=== PATIENT | male | born 1945 | race Caucasian/White ===

== ENCOUNTER 2023-04-18 05:17 | Observation (INO) ==
--- NOTE | 2023-03-20 13:33 | PAT Medication Instructions ---
Medication Instructions Date of Service March 20, 2023 Home Medications atorvastatin 40 mg tablet 40 mg PO PM buspirone 5 mg tablet 5 mg PO BID cetirizine 10 mg tablet (Zyrtec) 10 mg PO QPM cholecalciferol (vitamin D3) 125 mcg (5,000 unit) tablet (Vitamin D3) 125 mcg PO QAM cyanocobalamin (vitamin B-12) 1 tab PO QAM erythromycin 250 mg tablet 250 mg PO 3XWK gabapentin 100 mg capsule 200 mg PO TID guaifenesin 1,200 mg tablet, extended release 12 hr (Mucinex) 1,200 mg PO BID lansoprazole 30 mg capsule,delayed release (Prevacid) 30 mg PO QAM losartan 25 mg tablet 25 mg PO BID meloxicam 7.5 mg tablet 7.5 mg PO QAM metoprolol succinate 25 mg tablet,extended release 24 hr 25 mg PO QAM Continue as directed erythromycin 250 mg tablet 250 mg PO 3XWK ASK your surgeon for instructions meloxicam 7.5 mg tablet 7.5 mg PO QAM DO NOT take the morning of surgery cholecalciferol (vitamin D3) 125 mcg (5,000 unit) tablet (Vitamin D3) 125 mcg PO QAM cyanocobalamin (vitamin B-12) 1 tab PO QAM guaifenesin 1,200 mg tablet, extended release 12 hr (Mucinex) 1,200 mg PO BID losartan 25 mg tablet 25 mg PO BID Take morning of surgery With a small sip of water, OTHERWISE NOTHING TO EAT OR DRINK AFTER MIDNIGHT: buspirone 5 mg tablet 5 mg PO BID gabapentin 100 mg capsule 200 mg PO TID lansoprazole 30 mg capsule,delayed release (Prevacid) 30 mg PO QAM metoprolol succinate 25 mg tablet,extended release 24 hr 25 mg PO QAM Take evening before surgery atorvastatin 40 mg tablet 40 mg PO PM buspirone 5 mg tablet 5 mg PO BID cetirizine 10 mg tablet (Zyrtec) 10 mg PO QPM gabapentin 100 mg capsule 200 mg PO TID guaifenesin 1,200 mg tablet, extended release 12 hr (Mucinex) 1,200 mg PO BID losartan 25 mg tablet 25 mg PO BID Other Notes If you have any questions please call us at [phone] or [phone] or [phone] or [phone]
--- NOTE | 2023-03-23 15:32 | Anesthesiology Consultation ---
Date of Service March 23, 2023 Assessment & Plan (1) Encounter for pre-operative examination: - COVID screening: Per assessment on 03/23: No known COVID-19 positive contacts or current COVID-19 related symptoms. Travel screen negative. Patient vaccinated. At surgeon discretion if preop Covid testing being done. - Outpatient joint assessment: Pt currently scheduled for inpatient pathway. If surgeon requests review for outpatient joint pathway, patient is not recommended candidate for outpatient joint program from anesthesia standpoint. - Cardiology note (02/07/23): "Cleared from a cardiac standpoint to have right total knee replacement surgery. Pt reports being able to achieve 4 METS by walking a city block or climbing a flight of stairs without chest pain or SOB. It is not recommended that he stop his ASA as will increase his risk for cardiac event." - Preop CXR: Performed 03/23/23 notes "No acute cardiopulmonary abnormality is clearly identified. There is volume loss and diffuse interstitial change throughout the right lung. Question lobar atelectasis of the right lung. These findings are of indeterminate chronicity. Correlate with any prior outside imaging studies. If no prior studies are available then a chest CT should be obtained for further assessment of the thorax." Patient follows with pulmonary. Note written to pulmonary- Awaiting response + most recent pulmonary office visit note (Dr. Chaudhry/Britney). Chart Review Chart Review: Patient seen in Pre Admission Testing Teaching & Discussion Pre-Anesthesia Teaching/Discussion Notes: Instructed NPO after midnight before surgery,except medications with 15 cc of water. Medication instructions provided according to the PAT guidelines. History Surgery Operation Date: 04/18/23 07:00 Proposed Procedures p Right Total Knee Arthroplasty - Binu Wang MD Height/Weight Height: 5 ft 7 in Weight: 105 kg Allergies Allergy/AdvReac Type Severity Reaction Status Date / Time No Known Allergies Allergy Verified 03/20/23 11:50 Medications Home Medications Medication Instructions Recorded Confirmed Last Taken atorvastatin 40 mg tablet 40 mg PO PM 03/20/23 03/20/23 Unknown buspirone 5 mg tablet 5 mg PO BID 03/20/23 03/20/23 Unknown cetirizine 10 mg tablet (Zyrtec) 10 mg PO QPM 03/20/23 03/20/23 Unknown cholecalciferol (vitamin D3) 125 125 mcg PO QAM 03/20/23 03/20/23 Unknown mcg (5,000 unit) tablet (Vitamin D3) cyanocobalamin (vitamin B-12) 1 tab PO QAM 03/20/23 03/20/23 Unknown erythromycin 250 mg tablet 250 mg PO 3XWK 03/20/23 03/20/23 Unknown gabapentin 100 mg capsule 200 mg PO TID 03/20/23 03/20/23 Unknown guaifenesin 1,200 mg tablet, 1,200 mg PO BID 03/20/23 03/20/23 Unknown extended release 12 hr (Mucinex) lansoprazole 30 mg capsule,delayed 30 mg PO QAM 03/20/23 03/20/23 Unknown release (Prevacid) losartan 25 mg tablet 25 mg PO BID 03/20/23 03/20/23 Unknown meloxicam 7.5 mg tablet 7.5 mg PO QAM 03/20/23 03/20/23 Unknown metoprolol succinate 25 mg 25 mg PO QAM 03/20/23 03/20/23 Unknown tablet,extended release 24 hr Past Medical History Medical History Aortic aneurysm Mild dilation of the distal aorta per 06/2022 aorta ultrasound Aortic stenosis 06/2022 Echo: Calcified and restricted aortic valve with mild aortic stenosis (PORFIRIO 1.5 cm, MG 12 mmHg) Barretts esophagus CAD (coronary artery disease) stent x1 (2017) follows with Dr. Nina Chronic lung disease reports r/t hx lung infection reason for abx 3xwk + mucinex follows with Dr. Allison/Britney GERD (gastroesophageal reflux disease) History of COVID-19 2020- [place] in [place] > BL PE History of DVT (deep vein thrombosis) BLLE (2020), in setting of Covid infection History of pulmonary embolism BL PE (2020) + Covid HLD (hyperlipidemia) HTN (hypertension) Osteoarthritis Osteoporosis Sleep apnea no device Spinal stenosis Exercise / Class Metabolic Activity II 4-5 Yardwork/Stairs/Walk up hill (one FS (no CP, no SOB)) Past Family History Family History Other No family history of adverse response to anesthesia Past Surgical History Surgical History History of cardiac catheterization 2018 > 1 stent History of cataract surgery History of cholecystectomy History of colonoscopy History of esophagogastroduodenoscopy (EGD) History of lumbar surgery + hardware History of repair of rotator cuff Right History of ventral hernia repair Past Anesthesia History No Hx of Anesthesia Complications and No Family Hx of Anesthesia Complications History of PONV No Hx of PONV and Hx of Motion Sickness (+ vertigo) Social History Smoking Status: Former smoker Do You Dip or Chew Tobacco: No Smoking End Date: Quit 1990 Hx Alcohol Use: Yes alcohol intake frequency: holidays/special occasions only Hx Substance Use: No substance use type: does not use Review of Systems Patient denies chest pain, shortness of breath, dyspnea on exertion, fever, chills, cough, wheezing, palpitations. Physical Exam Vital Signs VITALS BP 112/71 P 89 TEMP 98.2 SP02 95%RA RESP 16 PHYSICAL Full cervical extension range of motion. Full TMJ range of motion. TMD 3 finger breaths Mallampati Score 3 Dentition: full dentures upper/lower Lungs: clear throughout to auscultation Cardiac: regular rate and rhythm, II-III/ systolic murmur Spine: normal Carotid arteries: negative bruit Extremities: no LE edema Lab Results Anesthesia Preop Results Results Anesthesia Widget: WBC 7.13 K/ul (4.8-10.8) 03/23/23 Hgb 13.7 g/dl (14.0-18.0) L 03/23/23 Hct 40.0 % (42.0-52.0) L 03/23/23 Plt 276 K/uL (130-400) 03/23/23 Na 138 mmol/L (136-145) 03/23/23 K 4.0 mmol/L (3.5-5.1) 03/23/23 Cl 105 mmol/L (98-107) 03/23/23 CO2 24 mmol/L (21-32) 03/23/23 BUN 21 mg/dl (6-23) 03/23/23 Creat 1.24 mg/dl (0.6-1.4) 03/23/23 Glucose Level 130 mg/dl (70-99(Fasting)) H 03/23/23 PT 10.9 Seconds (9.0-12.0) 03/23/23 PTT 28.1 Seconds (21.0-31.0) 03/23/23 INR 1.0 (0.9-1.1) 03/23/23 Urine Color Yellow 03/23/23 Urine Appearance Clear (Clear) 03/23/23 Urine pH 5.5 (4.5-7.5) 03/23/23 Urine Specific [place] 1.014 (1.000-1.030) 03/23/23 Urine Protein Negative (Negative) 03/23/23 Urine Glucose (UA) Negative (Negative) 03/23/23 Urine Ketones Negative (Negative) 03/23/23 Urine Blood Negative (Negative) 03/23/23 Urine Nitrite Negative (Negative) 03/23/23 Urine Bilirubin Negative (Negative) 03/23/23 Urine Urobilinogen Negative (Negative) 03/23/23 Urine Leukocyte Esterase Negative (Negative) 03/23/23 Blood Type A Negative 03/23/23 Antibody Screen NEGATIVE 03/23/23 Testing Electrocardiogram Date: 05/31/22 SR at 74bpm. "Within normal limits" Chest X-Ray Date: 03/23/23 FINDINGS: PA and lateral chest radiographs are obtained. No prior studies are available for comparison at the time of dictation. The cardiomediastinal silhouette is unremarkable noting atherosclerotic calcification of the thoracic aorta. There is volume loss in the right lung with diffuse interstitial thickening. Question lobar atelectasis of the right lung. Milder interstitial thickening seen in the left lung and there is bibasilar scarring/atelectasis. No airspace consolidation typical for pneumonia or pleural effusion is identified. There is no pneumothorax. The skeletal structures are osteopenic. The bony thorax appears intact. Degenerative change and hypertrophy arthrosis is noted in the thoracic spine. Cholecystectomy clips are noted in the right upper quadrant. IMPRESSION: No acute cardiopulmonary abnormality is clearly identified. There is volume loss and diffuse interstitial change throughout the right lung. Question lobar atelectasis of the right lung. These findings are of indeterminate chronicity. Correlate with any prior outside imaging studies. If no prior studies are available then a chest CT should be obtained for further assessment of the thorax. Echocardiogram Date: 07/18/22 LVEF 55-60%. Mild LVH. Calcified and restricted aortic valve with mild aortic stenosis (PORFIRIO 1.5 cm, MG 12 mmHg). Mild TR. Mild LAE. Grade 1 diastolic dysfunction. Stress Test Date: 08/24/22 Type: nuclear Negative ECG response. Probability of CAD/ischemia relatively low. No significant ischemia. No significant infarction. SPECT perfusion images are considered to be within normal limits. LVEF 74%. Other Testing Abdominal aorta ultrasound Date: 07/18/22 Mild dilation of the distal aorta. Largest diameter of 2.7cm x 2.7cm. Cardiology provider response (07/18/22), "Abdominal aorta only slightly widened. No intervention needed at this time. Will continue to check yearly" COVID-19 Risk Screen Screening Information COVID-19 Screen Date: 03/23/23 Exposure 21 Days Family/Household +COVID Last 21 Days: No Exposure 10 Days Any COVID Exposure Last 10 Days: No Symptoms Last 10 Days Experienced COVID Sx Last 10 Days: No + COVID 0-90 Days COVID + in Last 0-90 Days: No
--- NOTE | 2023-04-17 17:09 | History & Physical Report ---
Date of Service April 17, 2023 Assessment & Plan (1) Primary osteoarthritis of right knee: Plan: Treatment options discussed with patient. He has failed conservative measures. He would like to proceed with surgery. Risks, benefits and alternatives to surgery including but not limited to infection, DVT, pain, stiffness, need for revision surgery, damage to blood vessels, damage to nerves, PE, , were discussed with the patient and they wish to proceed. Plan for right total knee arthroplasty on 228 at [facility] with Dr. Wang. Plan on Xarelto 10 mg daily for 1 month postop for DVT prophylaxis. We will plan on outpatient physical therapy. All questions answered. Patient will follow up postop. History of Present Illness Chief Complaint: Right knee pain Primary Care Provider: Nelson Flores DO 77-year-old male with past medical history significant for hypertension, CAD, history of lung infections managed with prophylactic antibiotics, history of bilateral PEs status post COVID, GERD who presents with ongoing left knee pain. Patient has end-stage osteoarthritis. Pain is interfering with his daily activities. He has failed conservative measures and would like to proceed with surgery. Patient denies headaches, sweats, fevers, chills, double vision, blurred vision, cough, sore throat, dysphagia, chest pain, sob, wheezing, n/v/d/c, numbness, tingling, fatigue, urinary symptoms, mood disorders. ROS positive for right knee pain and stiffness. Allergies Allergy/AdvReac Type Severity Reaction Status Date / Time No Known Allergies Allergy Verified 03/20/23 11:50 Home Medications Medication Instructions Recorded Confirmed Type atorvastatin 40 mg tablet 40 mg PO PM 03/20/23 03/20/23 History buspirone 5 mg tablet 5 mg PO BID 03/20/23 03/20/23 History cetirizine 10 mg tablet (Zyrtec) 10 mg PO QPM 03/20/23 03/20/23 History cholecalciferol (vitamin D3) 125 125 mcg PO QAM 03/20/23 03/20/23 History mcg (5,000 unit) tablet (Vitamin D3) cyanocobalamin (vitamin B-12) 1 tab PO QAM 03/20/23 03/20/23 History erythromycin 250 mg tablet 250 mg PO 3XWK 03/20/23 03/20/23 History gabapentin 100 mg capsule 200 mg PO TID 03/20/23 03/20/23 History guaifenesin 1,200 mg tablet, 1,200 mg PO BID 03/20/23 03/20/23 History extended release 12 hr (Mucinex) lansoprazole 30 mg capsule,delayed 30 mg PO QAM 03/20/23 03/20/23 History release (Prevacid) losartan 25 mg tablet 25 mg PO BID 03/20/23 03/20/23 History meloxicam 7.5 mg tablet 7.5 mg PO QAM 03/20/23 03/20/23 History metoprolol succinate 25 mg 25 mg PO QAM 03/20/23 03/20/23 History tablet,extended release 24 hr Past Med/Surg History Medical History Aortic aneurysm Mild dilation of the distal aorta per 06/2022 aorta ultrasound Aortic stenosis 06/2022 Echo: Calcified and restricted aortic valve with mild aortic stenosis (PORFIRIO 1.5 cm, MG 12 mmHg) Barretts esophagus CAD (coronary artery disease) stent x1 (2018) follows with Dr. Nina Chronic lung disease reports r/t hx lung infection reason for abx 3xwk + mucinex follows with Dr. Allison/Britney GERD (gastroesophageal reflux disease) History of COVID-19 2020- hospitalized in [place] > BL PE History of DVT (deep vein thrombosis) BLLE (2020), in setting of Covid infection History of pulmonary embolism BL PE (2020) + Covid HLD (hyperlipidemia) HTN (hypertension) Osteoarthritis Osteoporosis Sleep apnea no device Spinal stenosis Surgical History History of cardiac catheterization 2018 > 1 stent History of cataract surgery History of cholecystectomy History of colonoscopy History of esophagogastroduodenoscopy (EGD) History of lumbar surgery + hardware History of repair of rotator cuff Right History of ventral hernia repair Family History Other No family history of adverse response to anesthesia Social History Smoking Status: Former smoker Smoking End Date: Quit 1990; Second Hand Exposure: Yes (on occasion); Do You Dip or Chew Tobacco: No; Tobacco Cessation Education Requested by Patient: No Hx Alcohol Use: Yes Hx Substance Use: No Preferred Language: Welsh Communication Ability: Effective Car Supervisor Required: No Beliefs That Will Affect Care: None Current Living Situation: Spouse Feels Safe at Home: Yes Safety Concerns: Feels Safe At This Time Assistive Devices: Denture - Upper and Denture - Lower Review of Systems All systems reviewed & are unremarkable except as noted in HPI & below Physical Exam Constitutional: well developed and well nourished; no acute distress Eyes: PERRL, conjunctivae normal, anicteric sclerae ENMT: external ear and nose normal, oropharynx normal Neck: trachea midline, no thyromegaly Respiratory: normal respiratory effort, lungs clear to auscultation Cardiovascular: RRR, no murmur, no edema Musculoskeletal: Left knee: Mild effusion. Tenderness medial joint line. Range of motion 20 to 115 degrees. Pseudolaxity with valgus/varus stress mildly. Negative Kurtis's. Skin: no rashes, warm and dry Neurologic: patellar DTR's 2+ bilat, sensation intact Psychiatric: A+Ox3, euthymic affect Results & Data Diagnostic Findings Right knee radiographs demonstrate varus alignment. Patient has [id number] medial compartment. There is mild bone loss medial tibial plateau periarticular osteophytes.
[2023-04-18] MEDS ORDERED: dexAMETHasone 4 MG TAB PO SCH (06:00)
[2023-04-18] MEDS ORDERED: TRANEXAMIC ACID 1,000 MG **IV Intra-op IV SCH (06:00)
[2023-04-18] MEDS ORDERED: TRANEXAMIC ACID 1,000 MG **IV Pre-op IV SCH (06:00)
[2023-04-18] MEDS ORDERED: FAMOTIDINE 20 MG TAB PO SCH (06:00)
[2023-04-18] MEDS ORDERED: ROPIVACAINE 0.5% HCL/PF 150 MG, BUPIVACAINE 0.75% MPF 20 ML, EPINEPHrine 30MG/30ML (OR ... INFIL SCH (06:00)
[2023-04-18] MEDS ORDERED: GABAPENTIN 300 MG CAP PO SCH (06:00)
[2023-04-18] MEDS ORDERED: ceFAZolin 2000MG 2,000 MG/15 ML SYR IV SCH (06:00)
[2023-04-18] MEDS ORDERED: CeleBREX 200 MG CAP PO SCH (06:00)
[2023-04-18] MEDS ORDERED: LR 500ML BOLUS, THEN 15ML/HR IV SCH (06:00)
[2023-04-18] MEDS ORDERED: ACETAMINOPHEN 500 MG TAB PO SCH (06:00)
[2023-04-18] MEDS ORDERED: METOCLOPRAMIDE HCL 10 MG TABLET PO SCH (06:00)
[2023-04-18] MEDS ORDERED: BUPIVACAINE 0.5 % 5 MG/1 ML PF 10ML VIAL ONE (06:14)
[2023-04-18] MEDS ORDERED: ROPIVACAINE 0.5% 5 MG/ML 30 ML VIAL ONE (06:14)
[2023-04-18] MEDS ORDERED: EPINEPHrine INJ 1 MG/ML AMP ONE (06:14)
[2023-04-18] MEDS ORDERED: ORTHO JOINT ANESTHETIC ONE (06:42)
[2023-04-18] MEDS ORDERED: MIDAZOLAM HCL 1 MG/ML 2ML VIAL ONE (06:44)
[2023-04-18] MEDS ORDERED: LIDOCAINE 2% 2 ML VIAL/AMP(20MG/ML) INFIL ONE (06:46)
[2023-04-18] MEDS ORDERED: PROPOFOL IV EMULSION 10 MG/ML 20 ML VIAL IV ONE (06:46)
--- NOTE | 2023-04-18 07:08 | History & Physical Bridge Note ---
Date of Service April 18, 2023 History & Physical Bridge Note I have examined the patient, reviewed the History & Physical and in the interval since the performance of the History & Physical I have noted the following changes of clinical significance: no changes noted
[2023-04-18] MEDS ORDERED: fentaNYL citrate PF 100 MCG/2 ML VIAL ONE (07:21)
[2023-04-18] MEDS ORDERED: KETAMINE 50 MG/5 ML SYRINGE ONE (07:50)
[2023-04-18] MEDS ORDERED: HYDROmorphone INJ 1 MG/ML SYRINGE IV PRN (08:03)
[2023-04-18] MEDS ORDERED: ONDANSETRON INJ 2 MG/ML 2 ML VIAL IV PRN ×2 (08:03→11:07)
[2023-04-18] MEDS ORDERED: NALOXONE HCL 0.4 MG/1 ML VIAL/CARP IV PRN ×2 (08:03→11:07)
[2023-04-18] MEDS ORDERED: ATROPINE SULFATE 0.1 MG/ML 10ML SYR IV PRN (08:03)
[2023-04-18] MEDS ORDERED: LABETALOL HCL IV 5 MG/ML 20ML IV PRN (08:03)
[2023-04-18] MEDS ORDERED: ePHEDrine sulfate 50 MG/ML AMP IV PRN (08:03)
[2023-04-18] MEDS ORDERED: PROMETHAZINE HCL 12.5 MG in SODIUM CHLORIDE 0.9% 50 ML IV PRN (08:03)
[2023-04-18] MEDS ORDERED: FLUMAZENIL 0.1 MG/1 ML 10 ML VIAL IV PRN (08:03)
[2023-04-18] MEDS ORDERED: HYDROmorphone INJ 2 MG/ML SYR/VIAL ONE (08:04)
[2023-04-18] MEDS ORDERED: ONDANSETRON INJ 2 MG/ML 2 ML VIAL ONE (08:52)
--- NOTE | 2023-04-18 09:10 | Post Operative Brief Note ---
Immediate Post Op Note v1 Date of Surgery April 18, 2023 Pre & Post Diagnosis Operation Date: 04/18/23 07:00 Pre-Op Diagnosis: Right Knee Osteoarthritis Post-Op Diagnosis: Right Knee Osteoarthritis I identified the patient and participated in the time-out.: Yes Procedure Operation Date: 04/18/23 07:00 Actual Procedures p Right Total Knee Arthroplasty(Right), Almita and Acticoat superficial wound VAC - Binu Wang MD Surgeon Binu Wang MD Emergency Vehicle Driver Trev YEH Estimated Blood Loss 5 Findings Consistent with Post-Op Diagnosis Specimens bone cuts Drains Hemovac Drain Anesthesia Type General Regional Complications none Disposition Disposition: Recovery Room Overlapping Procedure I was present for: the critical portions of procedure. Back up surgeon: was not required during procedure.
--- NOTE | 2023-04-18 09:27 | Operative Report ---
Post Operative Report Pre & Post Diagnosis Operation Date: 04/18/23 07:00 Pre-Op Diagnosis: Right Knee Osteoarthritis Post-Op Diagnosis: Right Knee Osteoarthritis I identified the patient and participated in the time-out.: Yes Procedure Operation Date: 04/18/23 07:00 Actual Procedures p Right Total Knee Arthroplasty(Right), ghulam and Acticoat superficial wound VAC application- Binu Wang MD Surgeon Binu Wang MD Eap Consultant Trev YEH Estimated Blood Loss 5 Findings Consistent with Post-Op Diagnosis Specimens bone cuts Drains 2 Hemovac Anesthesia Type General Regional Complications none Disposition Disposition: Recovery Room Indications 77-year-old male with failed conservative management with NSAIDs osteoarthritis right knee with tricompartmental disease and a flexion contracture. Description of Procedure Patient was taken to the operating room placed supine on the operating table and anesthetized under[ General regional block] anesthesia. Exam under anesthesia demonstrated[ 15 to 20 degree flexion contracture with flexion to 125 degrees and no pseudolaxity with a stiff varus knee. Also had some element of patella baja with a large patella]. A pneumatic tourniquet was placed about the thigh of the right lower extremity. The right lower extremity was prepped and draped in usual sterile fashion. The leg was elevated exsanguinated with an Esmarch bandage and the pneumatic tourniquet was raised to 325mm mercury. An anterior incision was made across the right knee. The skin was incised longitudinally subcutaneous flaps were elevated and an incision was made through the medial retinaculum extending up into the mid third of the quadriceps tendon and extended down to the medial tibial tubercle. Intra-articular findings demonstrated tricompartmental osteoarthritis chronic ACL tear medial meniscus tear with displaced fragment into the medial gutter grade 4 patella OA and medial compartment OA with a varus knee. The knee was exposed by excising the infrapatellar fat pad, excising the meniscal remnants and posterior cruciate ligament. Any inflamed synovial tissue was resected. The fat pad over the anterior femur was resected for placement of the component in that area. The lateral synovial bands were release. The femur was exposed. due to the patella Baha large size of patella had to address patella first to get exposure. The patella was everted and a subperiosteal peel lateral release was performed around the lateral patella. The patella width was then measured and freehand cut technique was used to reproduced with and a 35 mm symmetrical patella component was used which was biased to the medial side where the drill holes were made and excess lateral facet was beveled off to prevent any impingement and all osteophytes were resected with a rongeur. The custom femoral cutting block was pinned in position. The distal femoral cutting block was applied. +2 mm resection cut was made due to the flexion contracture. The distal femoral cut was made with the oscillating saw. The size 10, 4-in-1 cutting block was placed. The anterior and posterior chamfer cuts were made. The tibia was exposed. A custom tibial cutting block was positioned and drill holes were made for the cutting guide. Cutting guide was placed and the proximal cut was made with the oscillating saw. All osteophytes were resected. The lamina biscuit packer was used to assess ligamentous balance and the ligaments were balanced in extension and flexion. medial posterior medial releases were required including some pie crusting of the MCL in order to get a balanced flexion extension gaps.. The tibia was reexposed and measured for a size G tibial component. This was externally rotated in line with the tibial tubercle and the fixation pins were drilled. The proximal tibia was fashioned with the drill and punch. The size[] femoral trial was inserted. The trial MC inserts were used. The 13 mm insert gave balanced ligaments through full range of motion. The patella tracked centrally. the trials were removed. The orthomix anesthetic cocktail was injected per protocol. The knee was then copiously irrigated with pulsatile lavage saline solution. The final components were cemented with Refobacin bone cement. The final components were Arsenio persona right size 10 standard CR femoral component, right G tibial component, 13 right MC tibial polyethylene and a 35 mm symmetrical patella. After the cement cured with the knee in full extension the Betadine soak was used per protocol. The knee joint was copiously irrigated with pulsatile lavage saline solution . 2 drains were brought out laterally and connected to a Hemovac. The quadriceps tendon and medial ret inaculum were closed with interrupted [id number] #1 Vicryl sutures. The knee was taken through a full range of motion which was 0 through 130 degrees and the repair was secure. The subcutaneous tissues were closed with 2-0 Vicryl sutures and skin was closed with stable.A ghulam and Acticoat superficial wound VAC was applied and the patient tolerated the procedure well. Trev Dowling my physician assistant to the president participated as rn first assistant and was an integral part in all aspects of the procedure, he assisted in soft tissue retraction, instrument management ,leg positioning, the closure, application superficial wound VAC and will participate in the postoperative care of the patient. I attest to the content of the Intraoperative Record and any orders documented therein. Any exceptions are noted below.
[2023-04-18] MEDS: fentaNYL citrate PF 100 MCG/2 ML VIAL IV PRN ×3 (10:12→10:30)
--- NOTE | 2023-04-18 10:39 | XRay Report ---
TWO VIEWS RIGHT KNEE CLINICAL HISTORY: Postoperative examination. FINDINGS: AP and crosstable lateral portable views of the right knee are obtained. A right knee arthr oplasty is in near anatomic alignment. There has been undersurface remodeling of the patella. No acut e fracture is seen. There are expected postoperative changes around the knee including skin clips, a surgical drain, soft tissue edema, and subcutaneous gas. IMPRESSION: Expected postoperative changes status post right knee arthroplasty. No acute fracture is seen. ACT 112: Negative or not required by law. Electronically signed by: Chau Cain M.D. 04/18/2023 10:38 AM
--- NOTE | 2023-04-18 10:57 | Anesthesiology Progress Note ---
Date of Service April 18, 2023 Anesthesia Post Procedure Vital Signs Vital Signs: Temp Pulse Pulse Resp BP Pulse Ox O2 Del Method 04/18/23 10:45 36.4 C L 72 18 146/93 H 98 Nasal Cannula 04/18/23 10:35 76 18 155/88 H 98 Nasal Cannula 04/18/23 10:25 70 18 137/81 97 Oxymask 04/18/23 10:15 74 12 132/77 96 Oxymask 04/18/23 10:06 36.2 C L 77 21 135/77 96 Oxymask 04/18/23 05:50 36.6 C 69 20 151/81 H 94 Room Air O2 Flow Rate 04/18/23 10:45 2 04/18/23 10:35 2 04/18/23 10:25 4 04/18/23 10:15 8 04/18/23 10:06 8 04/18/23 05:50 Pain Intensity Right Knee: Pain Intensity: 4 Transfer of Care Handoff Completed per policy Notes Mental Status: alert / awake / arousable Patient Amnestic to Procedure: Yes Nausea / Vomiting: adequately controlled Pain: adequately controlled Airway Patency, RR, SpO2: stable & adequate BP & HR: stable & adequate Hydration State: stable & adequate Anesthetic Complications: no major complications apparent
[2023-04-18] MEDS ORDERED: MAGNESIUM HYDROXIDE SUSP 30 ML UDC PO PRN (11:07)
[2023-04-18] MEDS ORDERED: HYDROmorphone INJ 0.5 MG/0.5 ML SYR IV PRN (11:07)
[2023-04-18] MEDS ORDERED: bisacodyL 10 MG SUPP PR PRN (11:07)
[2023-04-18] MEDS ORDERED: METOCLOPRAMIDE HCL INJ 5 MG/ML 2 ML VIAL IV PRN (11:07)
[2023-04-18] MEDS: SODIUM CHLORIDE 0.9% 1000ML 1,000 ML IV SCH ×2 (11:44→21:23)
--- NOTE | 2023-04-18 13:33 | Hospitalist Consultation ---
Date of Consultation April 18, 2023 Assessment & Plan (1) Status post total right knee replacement: -Currently stable -Pain control, DVT PPX, perioperative abx, and IV fluids per the primary team -Agree with starting Xarelto for DVT PPX as he has the previous hx of provoked DVT's -Would recommend the patient restart his 81 mg daily aspirin on discharge with his hx of stent placement in 2018 -Agree with AM labs tomorrow, we will follow -Thank you for allowing us to participate in the care of this patient, please reach out with any questions or concerns -Medicine will continue to follow (2) CAD (coronary artery disease): -Patient should restart daily aspirin on discharge (3) Chronic lung disease: -Stable on RA -Follows with [facility] in [place] -Continue 3 x weekly PO Azithromycin on Discharge (4) HTN (hypertension): -Stable -Agree with continuing losartan, will place hold parameters to hold for systolic BP < 120 mmhg -Continue metoprolol (5) HLD (hyperlipidemia): -Continue statin (6) GERD (gastroesophageal reflux disease): -Agree with daily pantoprazole for stress ulcer PPX Plan The patient was discussed with Dr. Zamudio at the time of the consult Supervising Physician Co-Signing Physician Notes I personally saw and examined the patient. I verified all russell points and agree with Chaitanya Goyal PA-C with the following exceptions and/or additions: No acute post operative question or concerns. Confirmed patient takes azithromycin rather than erythromycin and updated home med list. Aspirin also added confirmed with pre-op assessment note and patient he takes this. HS RRR, systolic ejection murmur LUSB (known about per patient with previous echocardiograms), Chest CTAB, Abdo SNT History of Present Illness Reason for Consultation: Post-op medical management Requesting Physician: Binu Wang MD Attending Physician: Dr. Volodymyr Zamudio History of Present Illness Bethel is a 77 year old male with a PMH significant for CAD S/P MARQUIS placement in 2016, HTN, Hyperlipidemia, Columba-en-Y gastric bypass, previously provoked PE's in (), and JUAN LUIS who presented to the [facility] OR on 04/18/23 for scheduled Right Total Knee Arthroplasty with Dr. Wang. Per review of vitals since admission, the patient has been stable. Per the operative note, anesthesia was listed as "[facility]", EBL was listed as 5 cc, and there were no reported intraoperative complications. At the time of the exam the patient was resting in bed in no acute distress with his sitting bedside, history was obtained from both. He states that he is feeling well, post-op, currently with sensation and without surgical site pain. He and his clarified that he does not use HS CPAP as the mask does not fit well. He had provoked PE's when he had Covid 19 back in 2019, they confirm that he completed 6 months of anticoagulation. He is on Azithromycin 3 x weekly as prescribed by his [facility], he and his were unable to give me an exact reason he is on it. They state it is because he had previous abnormal CT findings and a chronic cough since covid. He has no other complaints at the time of the exam. Please refer to Dr. Zamudio's attestation for any changes to the treatment plan Allergies Allergy/AdvReac Type Severity Reaction Status Date / Time No Known Allergies Allergy Verified 04/18/23 05:43 Home Medications Medication Instructions Recorded Confirmed Type atorvastatin 40 mg tablet 40 mg PO PM 03/20/23 04/18/23 History buspirone 5 mg tablet 5 mg PO BID 03/20/23 04/18/23 History cetirizine 10 mg tablet (Zyrtec) 10 mg PO QPM 03/20/23 04/18/23 History cholecalciferol (vitamin D3) 125 125 mcg PO QAM 03/20/23 04/18/23 History mcg (5,000 unit) tablet (Vitamin D3) cyanocobalamin (vitamin B-12) 1 tab PO QAM 03/20/23 04/18/23 History gabapentin 100 mg capsule 200 mg PO TID 03/20/23 04/18/23 History guaifenesin 1,200 mg tablet, 1,200 mg PO BID 03/20/23 04/18/23 History extended release 12 hr (Mucinex) lansoprazole 30 mg capsule,delayed 30 mg PO QAM 03/20/23 04/18/23 History release (Prevacid) losartan 25 mg tablet 25 mg PO BID 03/20/23 04/18/23 History meloxicam 7.5 mg tablet 7.5 mg PO QAM 03/20/23 04/18/23 History metoprolol succinate 25 mg 25 mg PO QAM 03/20/23 04/18/23 History tablet,extended release 24 hr aspirin 81 mg tablet 81 mg PO DAILY 04/18/23 04/18/23 History azithromycin 250 mg tablet 250 mg PO 3XWK 04/18/23 04/18/23 History acetaminophen 500 mg tablet 1,000 mg PO Q8 #60 tabs 04/19/23 Rx (Tylenol Extra Strength) cefadroxil 500 mg capsule 500 mg PO BID #28 caps 04/19/23 Rx celecoxib 200 mg capsule (Celebrex) 200 mg PO QAM #30 caps 04/19/23 Rx oxycodone 5 mg tablet 5 - 10 mg PO .Q4h-6h PRN pain #30 04/19/23 Rx tabs Patient History Medical History (Updated 04/18/23 @ 14:04 by Chaitanya Goyal PA-C) Aortic aneurysm Mild dilation of the distal aorta per 06/2022 aorta ultrasound Aortic stenosis 06/2022 Echo: Calcified and restricted aortic valve with mild aortic stenosis (PORFIRIO 1.5 cm, MG 12 mmHg) Barretts esophagus CAD (coronary artery disease) stent x1 (2017) follows with Dr. Nina Chronic lung disease reports r/t hx lung infection reason for abx 3xwk + mucinex follows with Dr. Allison/Britney GERD (gastroesophageal reflux disease) History of COVID-19 2020- hospitalized in [place], [place] > BL PE History of DVT (deep vein thrombosis) BLLE (2020), in setting of Covid infection History of pulmonary embolism BL PE (2020) + Covid HLD (hyperlipidemia) HTN (hypertension) Osteoarthritis Osteoporosis Sleep apnea no device Spinal stenosis Surgical History (Updated 04/18/23 @ 14:04 by Chaitanya Goyal PA-C) History of cardiac catheterization 2018 > 1 stent History of cataract surgery History of cholecystectomy History of colonoscopy History of esophagogastroduodenoscopy (EGD) History of lumbar surgery + hardware History of repair of rotator cuff Right History of ventral hernia repair Family History Other No family history of adverse response to anesthesia Social History Smoking Status: Former smoker Smoking End Date: Quit 1990; Second Hand Exposure: Yes (on occasion); Do You Dip or Chew Tobacco: No; Tobacco Cessation Education Requested by Patient: No Hx Alcohol Use: Yes Hx Substance Use: No Preferred Language: Ukrainian Communication Ability: Effective Band Maker Required: No Beliefs That Will Affect Care: None Current Living Situation: Spouse Feels Safe at Home: Yes Safety Concerns: Feels Safe At This Time Assistive Devices: Walker Physical Exam Physical Exam: Physical Exam: General: In no acute distress, stated age, well-nourished, good hygiene HEENT: Normocephalic, atraumatic, no scleral icterus, pupils around round, symmetrical, and reactive to light, moist mucus membranes, trachea midline, no thyromegaly Chest/Pulm: No respiratory distress, symmetrical chest expansion, clear breath sounds throughout Cardiac: RRR, no murmurs noted Abdomen: Negative for ascites and bruising, normoactive bowel sounds, soft, non-tender to palpation throughout Musculoskeletal: RLE currently wrapped and with drain in place, intact sensation and motor function in the BL feet Extremities: Radial, dorsalis pedis, and posterior tibial pulses are intact and symmetrical, no edema noted in the BL LE's Skin: Warm, dry, no rashes , lesions, or scars noted Neuro: Alert and oriented to person, place, month, year, and president, no focal defects, no tremors noted Psych: No acute distress, calm and cooperative during the exam Results & Data Results & Data Vital Signs (Past 12 Hours) Vital Signs Temp Pulse Pulse Resp BP BP Pulse Ox 04/18/23 12:13 36.6 C 68 18 136/72 98 04/18/23 11:37 36.4 C L 63 18 143/78 H 94 04/18/23 11:05 36.5 C 66 18 146/77 H 100 04/18/23 10:55 70 16 154/77 H 98 04/18/23 10:45 36.4 C L 72 18 146/93 H 98 04/18/23 10:35 76 18 155/88 H 98 04/18/23 10:25 70 18 137/81 97 04/18/23 10:15 74 12 132/77 96 04/18/23 10:06 36.2 C L 77 21 135/77 96 04/18/23 05:50 36.6 C 69 20 151/81 H 94 O2 Del Method O2 Flow Rate 04/18/23 12:13 Nasal Cannula 2 04/18/23 11:37 Room Air 04/18/23 11:05 Room Air 04/18/23 10:55 Nasal Cannula 2 04/18/23 10:45 Nasal Cannula 2 04/18/23 10:35 Nasal Cannula 2 04/18/23 10:25 Oxymask 4 04/18/23 10:15 Oxymask 8 04/18/23 10:06 Oxymask 8 04/18/23 05:50 Room Air Diagnostic Findings Knee X-Ray 04/18/23 10:08 TWO VIEWS RIGHT KNEE CLINICAL HISTORY: Postoperative examination. FINDINGS: AP and crosstable lateral portable views of the right knee are obtained. A right knee arthroplasty is in near anatomic alignment. There has been undersurface remodeling of the patella. No acute fracture is seen. There are expected postoperative changes around the knee including skin clips, a surgical drain, soft tissue edema, and subcutaneous gas. IMPRESSION: Expected postoperative changes status post right knee arthroplasty. No acute fracture is seen. ACT 112: Negative or not required by law. Electronically signed by: Chau Cain M.D. 04/18/2023 10:38 AM PG Care Time/CCT Total # of Minutes Spent Total Time Spent with Patient: Total time spent is greater than 50% in coordination of care (as documented) at patient's floor/unit and/or counseling patient: Coding [place] [address] IN/OBS CONSULT LVL 3,45M Patient Type Established Medical Decision Making High Complexity Diagnoses Status post total right knee replacement Z96.651 CAD (coronary artery disease) I25.10 Chronic lung disease J98.4 HTN (hypertension) I10 HLD (hyperlipidemia) E78.5 GERD (gastroesophageal reflux disease) K21.9
[2023-04-18] MEDS ORDERED: PANTOprazole 40 MG TAB PO SCH (13:45)
[2023-04-18] MEDS: ACETAMINOPHEN 500 MG TAB PO SCH ×2 (13:49→21:20)
[2023-04-18] MEDS: GABAPENTIN 100 MG CAP PO SCH ×2 (13:49→21:22)
[2023-04-18] MEDS: ceFAZolin 2000MG 2,000 MG/15 ML SYR IV SCH (16:20)
[2023-04-18] MEDS: oxyCODONE HCL IR 5 MG TAB (IMMEDIATE RELEASE) PO PRN ×2 (16:20→20:13)
[2023-04-18] MEDS: busPIRone 5 MG TAB PO SCH (21:20)
[2023-04-18] MEDS: CETIRIZINE HCL 10 MG TABLET PO SCH (21:20)
[2023-04-18] MEDS: SENNA 8.6 MG TAB PO SCH (21:21)
[2023-04-18] MEDS: ATORVASTATIN 40 MG TAB PO SCH (21:22)
[2023-04-18] MEDS: guaiFENesin 600 MG TABCR PO SCH (21:22)
[2023-04-18] MEDS: DOCUSATE SODIUM 100 MG CAP PO SCH (21:23)
[2023-04-19] MEDS: ceFAZolin 2000MG 2,000 MG/15 ML SYR IV SCH (00:06)
[2023-04-19] MEDS: oxyCODONE HCL IR 5 MG TAB (IMMEDIATE RELEASE) PO PRN ×4 (04:02→22:46)
[2023-04-19] MEDS: ACETAMINOPHEN 500 MG TAB PO SCH ×3 (05:49→22:47)
--- NOTE | 2023-04-19 08:15 | Orthopedic Progress Note ---
Date of Service April 19, 2023 Assessment & Plan (1) Status post total right knee replacement: Plan: Postop day #1 right total knee arthroplasty -PT/OT -Pain management as written -DVT prophylaxis: SCDs, teds, Eliquis 2.5 mg twice daily for 1 month postop. Originally had patient on Xarelto however this is not covered by his insurance. Patient thinks that Eliquis is on the list of medications that is covered. He is going to let us know for sure however will switch to Eliquis for now. -AM labs: Pending -Discharge planning: Plan on discharge home when stable. Currently patient's Hemovac output was 200 cc overnight. We will see if this slows down later this morning after therapy. If Hemovac output continues to remain high we will likely plan on continuing inpatient stay and continuing with drain until tomorrow. If drain output slows would likely plan on discharge home today. Admission and Anticipated Discharge Date Admission Date: April 18, 2023 Subjective Patient is postop day #1 right total knee arthroplasty. He is doing well this morning. He has been having ongoing pain. He otherwise is feeling well. Denies chest pain, shortness of breath, nausea/vomiting/diarrhea, headaches or dizziness. Review of Systems Review of Systems: All systems reviewed & are unremarkable except as noted in Subjective Physical Exam Physical Exam: Right knee: Dressing is clean, dry, intact. Hemovac on suction. Patient able to straight leg raise. No calf tenderness. His toes are mobile with good dorsiflexion. Distally neurovascular status and sensation is grossly intact. Constitutional: WD/WN, vitals as above Results & Data Vital Signs (Past 12 Hours) Vital Signs Temp Pulse Resp BP Pulse Ox O2 Del Method 04/19/23 07:03 36.7 C 61 18 112/65 96 Room Air 04/19/23 05:52 36.5 C 67 18 124/69 96 Room Air 04/19/23 03:47 36.4 C L 65 16 106/63 94 Room Air 04/18/23 23:14 36.6 C 66 18 103/66 96 Room Air
[2023-04-19] MEDS: GABAPENTIN 100 MG CAP PO SCH ×3 (08:39→20:37)
[2023-04-19] MEDS: LOSARTAN POTASSIUM 25 MG TAB PO SCH ×2 (08:39→20:37)
[2023-04-19] MEDS: DOCUSATE SODIUM 100 MG CAP PO SCH ×2 (08:40→20:37)
[2023-04-19] MEDS: PANTOprazole 40 MG TAB PO SCH (08:40)
[2023-04-19] MEDS: guaiFENesin 600 MG TABCR PO SCH ×2 (08:40→20:37)
[2023-04-19] MEDS: busPIRone 5 MG TAB PO SCH ×2 (08:41→20:37)
[2023-04-19] MEDS: CeleBREX 200 MG CAP PO SCH (08:41)
[2023-04-19] MEDS: METOPROLOL SUCC 25MG EXT REL TAB PO SCH (08:42)
[2023-04-19] MEDS: CYANOCOBALAMIN (B-12) 500 MCG TABLET PO SCH (08:42)
[2023-04-19] MEDS: CHOLECALCIFEROL 5,000 UNITS 125 MCG TAB PO SCH (08:42)
[2023-04-19] MEDS: MULTIVITAMIN TAB PO SCH (08:43)
[2023-04-19 08:55] LABS: Hematocrit (blood only) 37.3 % (42.0-52.0); Hemoglobin 12.4 g/dl (14.0-18.0); Mean Corpuscular Hemoglobin 30.8 pg (25.0-34.0); Mean Corpuscular Hgb Conc 33.2 g/dL (32.0-36.0); Mean Corpuscular Volume 92.6 fL (80.0-100.0); Mean Platelet Volume 10.9 fL (9.4-12.4); Platelet Count 285 K/uL (130-400); RDW Coefficient of Variation 12.5 % (11.5-14.5); RDW Standard Deviation 42.6 fL (36.4-46.3); Red Blood Count 4.03 M/uL (4.70-6.10); White Blood Count 16.86 K/ul (4.8-10.8)
[2023-04-19] MEDS ORDERED: RIVAROXABAN 10 MG TABLET PO SCH (09:00)
[2023-04-19] MEDS: APIXABAN 2.5 MG TAB PO SCH ×2 (09:12→20:37)
[2023-04-19 09:15] LABS: BUN Creatinine Ratio 15.9 (10-20); Calcium 9.1 mg/dl (8.6-10.3); Creatinine Clr Calc Pharmacy 63.3 ml/min; Est GFR (African American) 72.3 ml/min; Est GFR (Non-African American) 62.4 ml/min; Potassium 4.8 mmol/L (3.5-5.1)
--- NOTE | 2023-04-19 10:06 | Hospitalist Progress Note ---
Date of Service April 19, 2023 Assessment & Plan (1) Status post total right knee replacement: Plan: -Currently stable -Pain control, DVT PPX, perioperative abx, and IV fluids per the primary team -Agree with starting Xarelto for DVT PPX as he has the previous hx of provoked DVT's - Would advise minimum of 2 weeks duration but ultimately dose/duration at ortho's discretion -Would recommend the patient restart his 81 mg daily aspirin on discharge with his hx of stent placement in 2018 -AM labs completed this AM, noted leukocytosis of 16 but feel that this is likely demargination d/t from surgery, BMP reviewed and stable (2) CAD (coronary artery disease): Plan: Chronic/stable -Patient should restart daily aspirin on discharge (3) Chronic lung disease: Plan: Chronic/Stable on RA -Follows with [facility] in [place] -Continue 3 x weekly PO Azithromycin on Discharge (4) HTN (hypertension): Plan: Chronic/Stable -Agree with continuing losartan, will place hold parameters to hold for systolic BP < 120 mmhg -Continue metoprolol (5) HLD (hyperlipidemia): Plan: Chronic/stable -Continue statin (6) GERD (gastroesophageal reflux disease): Plan: Chronic/stable -Agree with daily pantoprazole for stress ulcer PPX Plan No further recommendations at this time. Patient is stable for discharge from medicine standpoint, will sign off. Please feel free to reach out should any acute needs arise while she remains in house. Thank you for allowing us to participate in the care of your patient. Plan has been d/w Dr. Carrasco. Admission and Anticipated Discharge Date Admission Date: April 18, 2023 Supervising Physician Co-Signing Physician Notes The patient was not seen by me. The chart was reviewed. Case discussed with RUBA Malik. Agree with assessment and plan Subjective Patient was seen on daily rounds this morning. He is seen up ambulating in the [place] with assistance of walker. Currently reports knee pain is well controlled. No dyspnea or chest pain. No n/v. Feels he is going to have a BM soon. No issues with urination. Physical Exam Physical Exam: GENERAL: 77 yo well-developed, well-nourished elderly M. NAD. LUNGS: Clear to auscultation bilaterally. No W/R/R. CARDIOVASCULAR: Regular rate and rhythm. ABDOMEN: Soft, non-tender and non-distended. BS normoactive x 4 quad. EXTREMITIES: R knee is dressed and wrapped in shamir. Hemovac present. No calf tenderness. Neg verito's sign. NV intact. Results & Data Results & Data Vital Signs (Past 12 Hours) Vital Signs Temp Pulse Resp BP Pulse Ox O2 Del Method 04/19/23 07:03 36.7 C 61 18 112/65 96 Room Air 04/19/23 05:52 36.5 C 67 18 124/69 96 Room Air 04/19/23 03:47 36.4 C L 65 16 106/63 94 Room Air 04/18/23 23:14 36.6 C 66 18 103/66 96 Room Air Laboratory Results 04/19/23 08:26 04/19/23 08:26 PG Care Time/CCT Total # of Minutes Spent Total Time Spent with Patient: Total time spent is greater than 50% in coordination of care (as documented) at patient's floor/unit and/or counseling patient: Coding Level of Care Code 70586 SUB INP/OBS CARE 2/35MIN Diagnoses Status post total right knee replacement Z96.651 CAD (coronary artery disease) I25.10 Chronic lung disease J98.4 HTN (hypertension) I10 HLD (hyperlipidemia) E78.5 GERD (gastroesophageal reflux disease) K21.9
[2023-04-19] MEDS: ATORVASTATIN 40 MG TAB PO SCH (20:37)
[2023-04-19] MEDS: SENNA 8.6 MG TAB PO SCH (20:37)
[2023-04-19] MEDS: CETIRIZINE HCL 10 MG TABLET PO SCH (20:37)
[2023-04-20] MEDS: oxyCODONE HCL IR 5 MG TAB (IMMEDIATE RELEASE) PO PRN ×2 (05:43→10:56)
[2023-04-20] MEDS: ACETAMINOPHEN 500 MG TAB PO SCH (05:43)
[2023-04-20] MEDS: CeleBREX 200 MG CAP PO SCH (08:08)
[2023-04-20] MEDS: CHOLECALCIFEROL 5,000 UNITS 125 MCG TAB PO SCH (08:08)
[2023-04-20] MEDS: MULTIVITAMIN TAB PO SCH (08:08)
[2023-04-20] MEDS: GABAPENTIN 100 MG CAP PO SCH (08:09)
[2023-04-20] MEDS: METOPROLOL SUCC 25MG EXT REL TAB PO SCH (08:09)
[2023-04-20] MEDS: PANTOprazole 40 MG TAB PO SCH (08:09)
[2023-04-20] MEDS: DOCUSATE SODIUM 100 MG CAP PO SCH (08:10)
[2023-04-20] MEDS: CYANOCOBALAMIN (B-12) 500 MCG TABLET PO SCH (08:10)
[2023-04-20] MEDS: LOSARTAN POTASSIUM 25 MG TAB PO SCH (08:10)
[2023-04-20] MEDS: guaiFENesin 600 MG TABCR PO SCH (08:11)
[2023-04-20] MEDS: APIXABAN 2.5 MG TAB PO SCH (08:11)
[2023-04-20] MEDS: busPIRone 5 MG TAB PO SCH (08:11)
--- NOTE | 2023-04-20 09:18 | Orthopedic Progress Note ---
Date of Service April 20, 2023 Assessment & Plan (1) Status post total right knee replacement: Plan: Postop day #2 right total knee arthroplasty Progressing well -PT/OT -Pain management as written -DVT prophylaxis: SCDs, teds, Eliquis 2.5 mg twice daily for 1 month postop. -Discharge planning: Plan for discharge home today Admission and Anticipated Discharge Date Admission Date: April 18, 2023 Subjective Postop day 2 Patient sitting in his chair at the bedside. Pain is controlled. He feels well today. He is hoping to go home today. No complaints this morning. Physical Exam Physical Exam: Dressings are clean, dry, and intact. Calves are soft nontender. Neurovascular intact. Toes are mobile. Hemovac drainage was 75 mL from the previous shift. Results & Data Vital Signs (Past 12 Hours) Vital Signs Temp Pulse Resp BP Pulse Ox O2 Del Method 04/20/23 07:02 36.4 C L 68 18 135/74 95 Room Air
--- NOTE | 2023-04-24 12:11 | Discharge Summary ---
Date of Service April 24, 2023 Admission HPI Per Admitting Provider 77-year-old male with past medical history significant for hypertension, CAD, history of lung infections managed with prophylactic antibiotics, history of bilateral PEs status post COVID, GERD who presents with ongoing left knee pain. Patient has end-stage osteoarthritis. Pain is interfering with his daily activities. He has failed conservative measures and would like to proceed with surgery. Patient denies headaches, sweats, fevers, chills, double vision, blurred vision, cough, sore throat, dysphagia, chest pain, sob, wheezing, n/v/d/c, numbness, tingling, fatigue, urinary symptoms, mood disorders. ROS positive for right knee pain and stiffness. Admission Exam Per Admitting Provider Constitutional: well developed and well nourished; no acute distress Eyes: PERRL, conjunctivae normal, anicteric sclerae ENMT: external ear and nose normal, oropharynx normal Neck: trachea midline, no thyromegaly Respiratory: normal respiratory effort, lungs clear to auscultation Cardiovascular: RRR, no murmur, no edema Musculoskeletal: Left knee: Mild effusion. Tenderness medial joint line. Range of motion 20 to 115 degrees. Pseudolaxity with valgus/varus stress mildly. Negative Krutis's. Skin: no rashes, warm and dry Neurologic: patellar DTR's 2+ bilat, sensation intact Psychiatric: A+Ox3, euthymic affect Principal Diagnosis Left knee osteoarthritis Discharge Exam Dressings are clean, dry, and intact. Calves are soft nontender. Neurovascular intact. Toes are mobile. Hemovac drainage was 75 mL from the previous shift. Discharge Data Allergies Allergy/AdvReac Type Severity Reaction Status Date / Time No Known Allergies Allergy Verified 04/18/23 05:43 Consultations 04/18/23 05:00 Consult Hospitalist Routine Procedures Performed Operation Date: 04/18/23 07:00 Actual Procedures p Right Total Knee Arthroplasty(Right) - Binu Wang MD Ordered Studies 04/18/23 05:00 US - OR guided needle placemen Routine Hospital Course (1) Status post total right knee replacement: Postop day #2 right total knee arthroplasty Progressing well -PT/OT -Pain management as written -DVT prophylaxis: SCDs, teds, Eliquis 2.5 mg twice daily for 1 month postop. -Discharge planning: Plan for discharge home today Postop day #1 right total knee arthroplasty -PT/OT -Pain management as written -DVT prophylaxis: SCDs, teds, Eliquis 2.5 mg twice daily for 1 month postop. Originally had patient on Xarelto however this is not covered by his insurance. Patient thinks that Eliquis is on the list of medications that is covered. He is going to let us know for sure however will switch to Eliquis for now. -AM labs: Pending -Discharge planning: Plan on discharge home when stable. Currently patient's Hemovac output was 200 cc overnight. We will see if this slows down later this morning after therapy. If Hemovac output continues to remain high we will likely plan on continuing inpatient stay and continuing with drain until tomorrow. If drain output slows would likely plan on discharge home today. Lab Results 04/18/23 04/19/23 04/19/23 Range/Units Unknown 08:26 08:26 WBC 16.86 H (4.8-10.8) K/ul RBC 4.03 L (4.70-6.10) M/uL Hgb 12.4 L (14.0-18.0) g/dl Hct 37.3 L (42.0-52.0) % MCV 92.6 (80.0-100.0) fL MCH 30.8 (25.0-34.0) pg MCHC 33.2 (32.0-36.0) g/dL RDW Std Deviation 42.6 (36.4-46.3) fL RDW Coeff of Nikki 12.5 (11.5-14.5) % Plt Count 285 (130-400) K/uL MPV 10.9 (9.4-12.4) fL Sodium 139 (136-145) mmol/L Potassium 4.8 (3.5-5.1) mmol/L Chloride 107 (98-107) mmol/L Carbon Dioxide 27 (21-32) mmol/L Anion Gap 5 (3-11) BUN 18 (6-23) mg/dl Creatinine 1.13 (0.6-1.4) mg/dl Est Cr Clr Drug Dosing 63.3 ml/min Est GFR ( Amer) 72.3 ml/min Est GFR (Non-Af Amer) 62.4 ml/min BUN/Creatinine Ratio 15.9 (10-20) Glucose 111 H (70-99(Fasting)) mg/dl Calcium 9.1 (8.6-10.3) mg/dl SARS-CoV-2, RNA, NAAT NEGATIVE (NEGATIVE) Total Time Total Time Spent Total Time Spent (In Minutes): 20 Discharge Plan Discharge Items Patient Disposition: Home - Self-Care Reason For Visit: Right Knee Osteoarthritis Discharge Diagnosis: Right Knee Osteoarthritis Activity: Per Instructions section Weightbearing: Right weightbearing Weightbearing Comment: as tolerated with walker Non-emergency contact: Surgeon Call non-emergency contact if: you have any medication questions, your pain is not controlled, your temperature is above 101.5, your wound has increased redness and your wound has increased drainage Follow-up/Referrals: Binu Wang MD [Surgeon] - (Follow up with Dr. Wang or his PA in 2 weeks from the day of surgery for your first post operative visit. ) Nelson Flores DO [Primary Care Provider] - Diet: Regular Addtl Attending Provider Instructions: ACTIVITY RECOMMENDATIONS: SELF CARE INSTRUCTIONS AFTER TOTAL KNEE REPLACEMENT A. You may need to continue a physical therapy program after discharge from the hospital. There are several options available to you. Your doctor will assist you in selecting the best one for you. 1. An out-patient facility 2 to 3 times a week for therapy or home therapy. 2. Continue working on all exercises taught to you in the hospital. Your goals should be to increase bending of your knee to 90 degrees and beyond and to fully straighten your knee. B. You may progress at your own pace from walking with a walker or crutches to a cane; then to no assistive devices. C. Make walking a part of your daily routine. Be up as much as comfortable with rest periods throughout the day. Rest with leg elevation is very important. Use the ice wrap frequently for the first 3-4 weeks. D. There are no restrictions on activities. You may ride in a car, shop, participate in gyroscopic instrument tester and all social activities. E. Wear the long elastic stockings (MARIFER hose) 20 hours a day for 2 weeks after surgery. They can be removed several times a day for laundering and for a bath. F. You may shower, no tub baths until cleared by your doctor. SPECIAL CARE INSTRUCTIONS: VERY IMPORTANT TO READ AND REVIEW A. There are a few signs you need to watch for after you are home. Call [facility] if you notice any of the followin. Increased severe knee pain. Some pain is expected especially when you exercise. 2. Increased swelling in your leg or knee; pain or swelling of the calf muscle in either lower leg. 3. Any fluid drainage from the incision. 4. Shortness of breath or chest pain. B. Please call [facility] at if you have any concerns or questions about your operation or recovery. The doctor or his nurse will return your call promptly. C. You must take antibiotics before dental work, bladder, bowel or other surgery. Your doctor will provide you with a permanent care to carry describing this precaution. IMPORTANT: * REMEMBER TO TAKE ASPIRIN, 81 MG, TWICE DAILY FOR 4 WEEKS UNLESS OTHERWISE DIRECTED. THIS IS YOUR BLOOD THINNER. * HIGH RISK PATIENTS MAY BE PRESCRIBED A STRONGER BLOOD THINNER. THIS WILL BE PROVIDED AT DISCHARGE. * CALL IF INCREASED PAIN, REDNESS, DRAINAGE OR FEVER GREATER THAT 101. * WEAR MARIFER HOSE 20 HOURS PER DAY FOR 2 WEEKS. This is a large suction dressing covering your incision. This will help pull any excess drainage from the wound and allow your incision to heal properly. You may shower with this if you can keep the unit outside of the shower. If any bleeding or leakage is noted please call your doctor's office. This will remain on your incision for 7 days and then should be removed. This can be done yourself or by the home nursing staff if applicable. The entire unit is disposable once removed. Once removed, keep incision clean and dry. If redness or drainage is noted, please call your surgeon. IF INCISION IS LEAKING THROUGH DRESSING, CALL THE OFFICE . FOLLOW UP VISIT: If appointment is not already scheduled: Please call [facility] to make a follow-up appointment for 2 weeks after your surgery at . Stand-Alone Forms: My PK Clean, Smoking Cessation Medications and DC Order Prescriptions: New acetaminophen [Tylenol Extra Strength] 500 mg Tablet 1,000 mg PO Q8 Qty: 60 0RF celecoxib [Celebrex] 200 mg Capsule 200 mg PO QAM Qty: 30 0RF oxycodone 5 mg Tablet 5 - 10 mg PO .Q4h-6h MDD 6 PRN (Reason: pain) Qty: 30 0RF Rx Instructions: Ongoing therapy, Dr. Wang supervising cefadroxil 500 mg capsule 500 mg PO BID Qty: 28 0RF Eliquis 2.5 mg tablet 2.5 mg PO Q12H 30 Days Qty: 60 0RF Continued atorvastatin 40 mg Tablet 40 mg PO PM buspirone 5 mg Tablet 5 mg PO BID cetirizine [Zyrtec] 10 mg Tablet 10 mg PO QPM losartan 25 mg Tablet 25 mg PO BID gabapentin 100 mg Capsule 200 mg PO TID metoprolol succinate 25 mg Tablet Extended Release 24 Hr 25 mg PO QAM cyanocobalamin (vitamin B-12) Tablet,Chewable 1 tab PO QAM cholecalciferol (vitamin D3) [Vitamin D3] 125 mcg (5,000 unit) Tablet 125 mcg PO QAM lansoprazole [Prevacid] 30 mg Capsule,Delayed Release(Dr/Ec) 30 mg PO QAM Mucinex 1,200 mg Tablet Extended Release 12hr 1,200 mg PO BID azithromycin 250 mg tablet 250 mg PO 3XWK Discontinued meloxicam 7.5 mg Tablet 7.5 mg PO QAM aspirin 81 mg Tablet 81 mg PO DAILY Discharge Orders: Discharge Order (Routine); Ordered 04/20/23 Ordered By: Jaziel Landaverde/Other Patient Handouts: Knee Osteoarthritis Admission Data Admit Date/Time: 04/18/23 10:08 Attending Provider: Binu Wang Admit Provider: Binu Wang Primary Care Provider: Nelson Flores Other Providers: Volodymyr Palmer Jonathan M. Other Interventions: Discharge Summary Assessment (RN) Last Done: 04/20/23 10:08
== END 2023-04-20 11:41 | disposition home or self-care (01) ==
LOC: ASU 05:17 → 3E 05:17
DX: Z86.711 Personal history of pulmonary embolism; M81.0 Age-related osteoporosis without current pathological fracture; J98.4 Other disorders of lung; Z86.16 Personal history of COVID-19; M25.761 Osteophyte, right knee; M17.11 Unilateral primary osteoarthritis, right knee; E66.9 Obesity, unspecified; Z20.822 Contact with and (suspected) exposure to COVID-19; Z68.36 Body mass index [BMI] 36.0-36.9, adult; Z79.899 Other long term (current) drug therapy; Z79.1 Long term (current) use of non-steroidal anti-inflammatories (NSAID); Z87.891 Personal history of nicotine dependence; Z86.718 Personal history of other venous thrombosis and embolism; K21.9 Gastro-esophageal reflux disease without esophagitis; I25.10 Atherosclerotic heart disease of native coronary artery without angina pectoris; I10 Essential (primary) hypertension; E78.5 Hyperlipidemia, unspecified

== ENCOUNTER 2024-04-09 08:25 | Observation (INO) ==
--- NOTE | 2024-04-04 15:31 | Anesthesiology Consultation ---
Date of Service April 04, 2024 Assessment & Plan (1) Encounter for pre-operative examination: - Outpatient joint assessment: Pt currently scheduled for inpatient pathway. If surgeon requests review for outpatient joint pathway, patient is not recommended candidate for outpatient joint program from anesthesia standpoint based on available information. - S/P Right TKA (04/18/23): LMA#5 + regional at [facility] (SAB unsuccessful r/t scar tissue from previous spine surgery) - PCP visit (03/18/24): "To go for left TKA in the near future.. Cardiac conditions stable.. Cleared from a pulmonary standpoint. Recovered from RLL PNA about 3 weeks ago (received 10 days of Levaquin). Symptoms resolved.. Possible fibrosis. To have PFTs and HRCT thru pulm.. Cannot tolerate CPAP.. Consider inspire.. Iron def anemia.. Now supplementing with p.o. iron q. other day dosing.. If unable to tolerate, could do iron infusions.. Cleared for sx" - Cardiology note (02/29/24): "I have reviewed the clinical history, medications and relevant noninvasive testing. Based on these findings, I would consider the patient to be at low/intermediate risk from a cardiac standpoint." - Pulmonary response (03/19/24): Made aware of upcoming 03/26/24 orthopedic surgery > "Patient is scheduled by our office for CT chest May 20. No further work up needed prior to surgery. Will complete our workup as scheduled. Patient has untreated severe JUAN LUIS. Monitor oxygenation during anesthesia" - Surgery was originally scheduled 03/26/24 but cancelled as patient came back Covid positive DOS (had recent exposure through prior to this). Per PAT RN phone assessment 03/28/24, patient has been and remained asymptomatic. Aware to contact surgeon/PAT if development of Covid-related symptoms prior to surgery. Okay for rescheduled DOS 04/09/24. Patient acceptable risk for surgery pending evaluation DOS. Chart Review Chart Review: Patient NOT seen in Pre Admission Testing History Surgery Operation Date: 04/09/24 09:55 Proposed Procedures p Left Knee Total Arthroplasty - Binu Wang MD Height/Weight Height: 5 ft 7 in Weight: 102.058 kg Allergies Allergy/AdvReac Type Severity Reaction Status Date / Time No Known Allergies Allergy Verified 03/26/24 05:44 Medications Home Medications Medication Instructions Recorded Confirmed Last Taken atorvastatin 40 mg tablet 40 mg PO PM 03/20/23 03/28/24 04/24/23 buspirone 5 mg tablet 5 mg PO BID 03/20/23 03/28/24 04/24/23 cetirizine 10 mg tablet (Zyrtec) 10 mg PO QPM 03/20/23 03/28/24 04/23/23 cholecalciferol (vitamin D3) 125 125 mcg PO QAM 03/20/23 03/28/24 04/18/23 mcg (5,000 unit) tablet (Vitamin D3) cyanocobalamin (vitamin B-12) 1 tab PO QAM 03/20/23 03/28/24 04/18/23 gabapentin 100 mg capsule 200 mg PO TID 03/20/23 03/28/24 04/24/23 guaifenesin 1,200 mg tablet, 1,200 mg PO BID 03/20/23 03/28/24 04/24/23 extended release 12 hr (Mucinex) losartan 25 mg tablet 25 mg PO BID 03/20/23 03/28/24 04/24/23 metoprolol succinate 25 mg 25 mg PO QAM 03/20/23 03/28/24 04/24/23 tablet,extended release 24 hr azithromycin 250 mg tablet 250 mg PO 3XWK 04/18/23 03/28/24 04/18/23 celecoxib 200 mg capsule (Celebrex) 200 mg PO QAM #30 caps 04/19/23 03/28/24 04/24/23 triamcinolone acetonide 0.1 % 1 applic topical BID PRN Skin 04/24/23 03/28/24 04/24/23 topical cream Irritation Collagen Powder 1 dose PO QAM 03/04/24 03/28/24 Unknown aspirin 81 mg tablet,delayed 81 mg PO HS 03/04/24 03/28/24 Unknown release coQ10 (ubiquinol) 100 mg capsule 100 mg PO HS 03/04/24 03/28/24 Unknown lansoprazole 30 mg capsule,delayed 30 mg PO QAM 03/04/24 03/28/24 Unknown release (Prevacid) famotidine 20 mg tablet (Pepcid) 20 mg PO HS 03/28/24 03/28/24 Unknown meloxicam 15 mg tablet 15 mg PO DAILY 03/28/24 03/28/24 Unknown Past Medical History Medical History Aortic aneurysm Mild dilation of the distal aorta per 06/2022 aorta ultrasound [facility] Aortic stenosis Echo 08/2023: Mild aortic stenosis (PORFIRIO 1.4cm2, MG 13.7mmhg) Barretts esophagus CAD (coronary artery disease) Stent x1 (2017) Follows with Dr. Nina Chronic anemia Chronic lung disease "Chronic lung disease with bronchiectasis" per pulmonary Chronic abx (takes 3 days a week for the last 3 years) Follows with [facility]/Dr. Allison COVID-19 tested positive 03/26/24, asymptomatic GERD (gastroesophageal reflux disease) History of COVID-19 2020: hospitalized in [place], [place] > BL PE History of DVT (deep vein thrombosis) 4 total blood clots (2020), in setting of Covid infection History of pulmonary embolism BL PE (2020) in setting of Covid infection, was on blood thinner for 6 months after event History of recent pneumonia 01/2024, [facility] urgent care Hyperlipidemia Hypertension Osteoarthritis Osteoporosis Sleep apnea No device Spinal stenosis Past Family History Family History Other No family history of adverse response to anesthesia Past Surgical History Surgical History History of cardiac catheterization 2017 > 1 stent History of cataract surgery R/L History of cholecystectomy History of colonoscopy History of esophagogastroduodenoscopy (EGD) History of lumbar surgery L3-5 + hardware (2004) History of repair of rotator cuff Right History of tooth extraction History of ventral hernia repair Status post total right knee replacement (04/18/23) LMA#5 + regional at [facility] (SAB unsuccessful r/t scar tissue from previous spine surgery) Social History Smoking Status: Former smoker Do You Dip or Chew Tobacco: No Hx Alcohol Use: Yes alcohol intake frequency: holidays/special occasions only Hx Substance Use: No substance use type: does not use Lab Results Anesthesia Preop Results Results Anesthesia Widget: WBC 9.15 K/ul (4.8-10.8) 03/13/24 Hgb 13.0 g/dl (14.0-18.0) L 03/13/24 Hct 38.6 % (42.0-52.0) L 03/13/24 Plt 324 K/uL (130-400) 03/13/24 Na 139 mmol/L (136-145) 03/13/24 K 4.5 mmol/L (3.5-5.1) 03/13/24 Cl 107 mmol/L (98-107) 03/13/24 CO2 25 mmol/L (21-32) 03/13/24 BUN 21 mg/dl (6-23) 03/13/24 Creat 1.06 mg/dl (0.6-1.4) 03/13/24 Glucose Level 104 mg/dl (70-99(Fasting)) H 03/13/24 PT 11.3 Seconds (9.0-12.0) 03/13/24 PTT 28 Seconds (21-31) 03/13/24 INR 1.0 (0.9-1.1) 03/13/24 Urine Color Yellow 03/13/24 Urine Appearance Clear (Clear) 03/13/24 Urine pH 5.5 (4.5-7.5) 03/13/24 Urine Specific [place] 1.008 (1.000-1.030) 03/13/24 Urine Protein Negative (Negative) 03/13/24 Urine Glucose (UA) Negative (Negative) 03/13/24 Urine Ketones Negative (Negative) 03/13/24 Urine Blood Negative (Negative) 03/13/24 Urine Nitrite Negative (Negative) 03/13/24 Urine Bilirubin Negative (Negative) 03/13/24 Urine Urobilinogen Negative (Negative) 03/13/24 Urine Leukocyte Esterase Negative (Negative) 03/13/24 SARS-CoV-2, RNA, NAAT POSITIVE (NEGATIVE) A 03/26/24 Blood Type A Negative 03/13/24 Antibody Screen NEGATIVE 03/13/24 Testing Electrocardiogram Date: 03/13/24 NSR at 70bpm. "Normal ECG" Chest X-Ray Date: 03/13/24 FINDINGS: No lines and tubes are seen. The cardiomediastinal silhouette is normal. Airspace opacity and volume loss in the right lung is seen. No evidence of pleural effusion or pneumothorax. IMPRESSION: Stable airspace opacity [compared to 04/10/23 chest radiograph] and volume loss in the right lung. Echocardiogram Date: 08/22/23 LVEF 59%. Small left ventricle. Calcified and restricted aortic valve with mild aortic stenosis. Mild AR. PORFIRIO 1.4 cm. MG 13.7 mmHg. Mild TR. Mild LAE. Grade 1 diastolic dysfunction. Stress Test Date: 08/30/23 The SPECT perfusion images are considered to be within normal limits. No significant infarction/ischemia. Nondiagnostic ECG response to regadenoson. LVEF 83%.
[~2024-04-09 08:25] MED LIST: BUPIVACAINE 0.5 % 5 MG/1 ML PF 10ML VIAL ONE; ROPIVACAINE 0.5% 5 MG/ML 30 ML VIAL ONE
[2024-04-09] MEDS ORDERED: fentaNYL citrate PF 100 MCG/2 ML VIAL ONE (09:06)
[2024-04-09] MEDS ORDERED: MIDAZOLAM HCL 1 MG/ML 2ML VIAL ONE (09:06)
[2024-04-09] MEDS ORDERED: ATROPINE SULFATE 0.1 MG/ML 10ML SYR IV PRN (09:17)
[2024-04-09] MEDS ORDERED: ePHEDrine sulfate 50 MG/ML AMP IV PRN (09:17)
[2024-04-09] MEDS: CeleBREX 200 MG CAP PO SCH (09:20)
[2024-04-09] MEDS: FAMOTIDINE 20 MG TAB PO SCH (09:20)
[2024-04-09] MEDS: GABAPENTIN 300 MG CAP PO SCH (09:20)
[2024-04-09] MEDS: ACETAMINOPHEN 500 MG TAB PO SCH ×2 (09:20→15:47)
[2024-04-09] MEDS: dexAMETHasone**PF** 10 MG/ML VIAL IV SCH (09:20)
[2024-04-09] MEDS: METOCLOPRAMIDE HCL 10 MG TABLET PO SCH (09:20)
[2024-04-09] MEDS: LR 15ML/HR IV SCH (09:23)
--- NOTE | 2024-04-09 09:23 | History & Physical Bridge Note ---
Date of Service April 09, 2024 History & Physical Bridge Note I have examined the patient, reviewed the History & Physical and in the interval since the performance of the History & Physical I have noted the following changes of clinical significance: no changes noted
[2024-04-09] MEDS: TRANEXAMIC ACID 1,000 MG **IV Pre-op IV SCH (09:28)
[2024-04-09] MEDS ORDERED: SUGAMMADEX SODIUM 200 MG/2 ML VIAL IV ONE (09:31)
[2024-04-09] MEDS ORDERED: ROCURONIUM BROMIDE 10 MG/ML 5 ML VIAL IV ONE (09:31)
[2024-04-09] MEDS ORDERED: PROPOFOL IV EMULSION 10 MG/ML 20 ML VIAL IV ONE (09:31)
[2024-04-09] MEDS ORDERED: DEXAMETHASONE SOD INJ 4 MG/ML VIAL ONE (09:31)
[2024-04-09] MEDS ORDERED: ONDANSETRON INJ 2 MG/ML 2 ML VIAL ONE (09:31)
[2024-04-09] MEDS: ceFAZolin 2000MG 2,000 MG/15 ML SYR IV SCH ×2 (10:08→17:35)
[2024-04-09] MEDS ORDERED: HYDROmorphone INJ 2 MG/ML SYR/VIAL ONE (10:26)
[2024-04-09] MEDS ORDERED: KETAMINE HCL 10MG/ML SYR ONE (10:26)
[2024-04-09] MEDS: ORTHO JOINT ANESTHETIC ONE (10:32)
[2024-04-09] MEDS: ROPIV 0.5% 246mg, Ketorolac 30mg, EPINEPHrine 0.5mg in NSS INFIL SCH (11:32)
[2024-04-09] MEDS: TRANEXAMIC ACID 1,000 MG **IV Intra-op IV SCH (11:45)
--- NOTE | 2024-04-09 12:19 | Post Operative Brief Note ---
Immediate Post Op Note Date of Surgery April 09, 2024 Pre & Post Diagnosis Operation Date: 04/09/24 09:55 Pre-Op Diagnosis: Left Knee Osteoarthritis Post-Op Diagnosis: Left Knee Osteoarthritis I identified the patient and participated in the time-out.: Yes Procedure Operation Date: 04/09/24 09:55 Actual Procedures p Left Knee Total Arthroplasty(Left) - Binu Wang MD Surgeon Binu Wang MD Bluing Oven Tender Jaziel YEH Estimated Blood Loss 5 Findings Consistent with Post-Op Diagnosis Specimens Bone cuts Drains Hemovac Drain Anesthesia Type General Regional Complications none Disposition Disposition: Recovery Room Overlapping Procedure I was immediately available: during the entire case.
--- NOTE | 2024-04-09 12:31 | Operative Report ---
Post Operative Report Pre & Post Diagnosis Operation Date: 04/09/24 09:55 Pre-Op Diagnosis: Left Knee Osteoarthritis Post-Op Diagnosis: Left Knee Osteoarthritis I identified the patient and participated in the time-out.: Yes Procedure Operation Date: 04/09/24 09:55 Actual Procedures p Left Knee Total Arthroplasty(Left), ghulam and Acticoat superficial wound VAC application.- Binu Wang MD Surgeon Binu Wang MD Certified Executive Chef Jaziel YEH Estimated Blood Loss 5 Findings Consistent with Post-Op Diagnosis Specimens Bone cuts Drains 2 Hemovac Anesthesia Type General Regional Complications none Disposition Disposition: Recovery Room Indications 78-year-old male with chronic left knee osteoarthritis [id number] medial compartment and patellofemoral joint with a varus knee. He has successful right knee replacement Description of Procedure Patient was taken to the operating room placed supine on the operating table and anesthetized under general regional block anesthesia. Exam under anesthesia demonstrated left knee range of motion was 10 through 125 degrees with no pseudolaxity or instability. Small effusion only.. A pneumatic tourniquet was placed about the thigh of the left lower extremity. The left lower extremity was prepped and draped in usual sterile fashion. The leg was elevated exsanguinated with an Esmarch bandage and the pneumatic tourniquet was raised to 300 mm mercury. An anterior incision was made across the left knee. The skin was incised longitudinally subcutaneous flaps were elevated and an incision was made through the medial retinaculum extending up into the mid third of the quadriceps tendon and extended down to the medial tibial tubercle. Intra- articular findings demonstrated [id number] medial compartment with some bone loss and [id number] patellofemoral joint as well mainly lateral to the central area of the patella. The knee was exposed by excising some of the infrapatellar fat pad, excising the meniscal remnants and posterior and anterior cruciate ligaments. Any inflamed synovial tissue was resected. The synovium and fat pad over the anterior femur was resected for placement of the component in that area. The lateral synovial bands were released. The femur was exposed. The custom femoral cutting block was pinned in position. The distal femoral cutting block was applied in the +2 position due to the flexion contracture. The distal femoral cut was made with the oscillating saw. The size 11, 4-in-1 cutting block was placed. The anterior and posterior chamfer cuts were made. The knee was extended and a subperiosteal peel lateral release was performed around the patella. The patella width was measured and width was reproduced using freehand cut technique. The 32 millimeter symmetrical patella was used. 3 drill holes are made for the pegs. The tibia was exposed. A custom tibial cutting block was positioned and drill holes were made for the cutting guide. Cutting guide was placed and the proximal cut was made with the oscillating saw. All osteophytes were resected. The lamina project lead was used to assess ligamentous balance and the ligaments were balanced in extension and flexion. Moderate medial posterior medial releases were required. The tibia was reexposed and measured for a size G tibial component. This was externally rotated in line with the tibial tubercle and the fixation pins were drilled. The proximal tibia was fashioned with the drill and punch. The size 11 CR femoral trial was inserted. The trial MC inserts were used. The 11 mm insert gave balanced ligaments through full range of motion. The patella tracked centrally. the trials were removed. The orthomix anesthetic cocktail was injected into the posterior capsular tissues and periosteum. The knee was then copiously irrigated with pulsatile lavage saline solution. The final components were cemented with Refobacin bone cement. The final components were Arsenio [employer] persona size left CR femoral component, G tibial component, 11 left MC tibial polyethylene and a 32 mm symmetrical polyethylene patella. Some Xperience irrigation was placed over the tibial component prior to insertion of the polyethylene. After the cement cured with the knee placed in full extension, the knee joint was copiously irrigated with pulsatile lavage Xperience solution . 2 drains were brought out laterally and connected to a Hemovac. The quadriceps tendon and medial retinaculum were closed with #2 FiberWire sutures placed at the medial retinaculum area and distal quad area and #1 Vicryl at the superior apex of the quad tendon incision and distally at the medial retinaculum area and the remainder of the repair was performed with oh strata fix running suture. The knee was taken through a full range of motion which was 0 through 125 degrees and the repair was secure. The subcutaneous tissues were closed with 2-0 Vicryl sutures and skin was closed with surgical andie.A ghulam and Acticoat Flex superficial wound VAC was applied and the patient tolerated the procedure well. Jaziel YEH my physician executive assistant participated as hearing aid assistant and was an integral part in all aspects of the procedure, he assisted in soft tissue retraction, instrument management ,leg positioning, the closure, wound VAC application and will participate in the postoperative care of the patient. I attest to the content of the Intraoperative Record and any orders documented therein. Any exceptions are noted below.
[2024-04-09] MEDS: fentaNYL citrate PF 100 MCG/2 ML VIAL IV PRN (12:45)
[2024-04-09] MEDS: ONDANSETRON INJ 2 MG/ML 2 ML VIAL ONE (13:03)
[2024-04-09] MEDS: HYDROmorphone INJ 0.5 MG/0.5 ML SYR ONE (13:15)
[2024-04-09] MEDS: HYDROmorphone INJ 0.5 MG/0.5 ML SYR IV STA (13:28)
[2024-04-09] MEDS: SODIUM CHLORIDE 0.9% 1,000 ML IV SCH ×2 (13:39→14:09)
--- NOTE | 2024-04-09 13:39 | XRay Report ---
XR knee LT 1 or 2V routine HISTORY: 78 years-old Male Surgical Post Op left knee arthroplasty COMPARISON: None TECHNIQUE: 2 views of the left knee FINDINGS: Total arthroplasty with patellar resurfacing. Anterior midline skin andie with expected postoperati ve soft tissue swelling and deep tissue air. Arterial calcifications. No acute fracture or dislocatio n. IMPRESSION: Total joint arthroplasty with expected postoperative changes. ACT 112: Negative or not required by law. The above report was generated using voice recognition software. It may contain grammatical, syntax o r spelling errors. Electronically signed by: Jacoby Macias M.D. 04/09/2024 1:37 PM
--- NOTE | 2024-04-09 13:56 | Anesthesiology Progress Note ---
Date of Service April 09, 2024 Anesthesia Post Procedure Vital Signs Vital Signs: Temp Pulse Resp BP Pulse Ox O2 Del Method O2 Flow Rate 04/09/24 13:45 37.1 C 86 18 137/70 96 Nasal Cannula 2 04/09/24 13:35 37.1 C 87 24 142/76 H 97 Nasal Cannula 2 04/09/24 13:25 37.1 C 85 19 151/70 H 94 Nasal Cannula 2 04/09/24 13:15 37.1 C 92 H 21 150/79 H 95 Nasal Cannula 2 04/09/24 13:05 90 17 137/82 96 Nasal Cannula 3 04/09/24 12:55 93 H 17 133/75 96 Nasal Cannula 3 04/09/24 12:45 93 H 18 141/80 H 96 Nasal Cannula 4 04/09/24 12:35 97 H 18 141/78 H 96 Nasal Cannula 4 04/09/24 12:25 36.5 C 98 H 16 130/70 97 Nasal Cannula 4 04/09/24 08:57 Room Air 04/09/24 08:57 36.8 C 72 18 118/72 96 Room Air Pain Intensity Left Knee: Pain Intensity: 3 Transfer of Care Handoff Completed per policy Notes Mental Status: alert / awake / arousable Patient Amnestic to Procedure: Yes Nausea / Vomiting: adequately controlled Pain: adequately controlled Airway Patency, RR, SpO2: stable & adequate BP & HR: stable & adequate Hydration State: stable & adequate Anesthetic Complications: no major complications apparent and Pt Satisfied with anesthetic care
[2024-04-09] MEDS ORDERED: diphenhydrAMINE 50 MG/ML VIAL IV PRN (13:59)
[2024-04-09] MEDS ORDERED: NALOXONE HCL 0.4 MG/1 ML VIAL/CARP IV PRN (13:59)
[2024-04-09] MEDS ORDERED: bisacodyL 10 MG SUPP PR PRN (13:59)
[2024-04-09] MEDS ORDERED: MAGNESIUM HYDROXIDE SUSP 30 ML UDC PO PRN (13:59)
--- NOTE | 2024-04-09 14:47 | Hospitalist Consultation ---
Date of Consultation April 09, 2024 Assessment & Plan (1) Status post total left knee replacement: Left total knee replacement with Dr. Wang on 04/09 Postop left knee x-ray shows expected postoperative soft tissue swelling Perioperative antibiotics, pain control, and fluid management per the primary team Recent covid infection and hx of covid-associated b/l PEs; will start patient of DVT/PE PPx on the evening of 04/10, 24h after surgery Added on Eliquis 2.5mg BID Agree with a.m. CBC, BMP; we will follow (2) CAD (coronary artery disease): S/p stent placement in 2018 Continue aspirin BID starting the evening of 04/09 (3) History of pulmonary embolism: Bilateral pulmonary emboli in 2020 with associated COVID infection Patient was previously on a blood thinner for 6 months after the event, but is not currently on blood thinner (4) Hypertension: Plan Agree with current medical management with the following exceptions: Disposition: MedSurg Regular diet VTE PPx: SCDs/teds ordered, but recommend chemical DVT PPx in the setting of history of provoked bilateral PE/DVT Thank you for allowing us to precipitate in the care of this patient, please reach out with any questions or concerns; we will continue to follow. Supervising Physician Co-Signing Physician Notes Patient seen and examined, chart reviewed, case discussed with Misha Salvador PA-C and I agree with the assessment and plan as above except as otherwise noted Labs and images reviewed Postop left total knee. Uncomplicated, 5 cc of blood loss. No complications. Did take his metoprolol this morning. no chest pain. L leg with improving sensation and strength, grossly intact on assessment. No chest pain. Lungs clear. He has a past history of hypertension, CAD with cardiac stent in 2018, hyperlipidemia, Columba-en-Y gastric bypass, GERD, provoked PEs now on Xarelto, JUAN LUIS with difficulty tolerating BiPAP. Patient had his aspirin held 7 days prior to his TKA. Confirmed with pt 1x MARQUIS placed in 2018. Pt w/ with a history of provoked PEs, for increased VTE risk. Also COVID positive 3 week ago. Recommend restarting ASA tonight, then daily starting tomorrow. Eliquis 2.5mg PO BID for DVT ppx given increased risk to be started at 24 hours. Otherwise agree w/ above. History of Present Illness Reason for Consultation: Medical management Requesting Physician: Binu Wang MD Attending Physician: Binu Wang MD History of Present Illness Bethel is a pleasant 78-year-old male with PMH of HTN and HLD. He presented for a left total knee arthroplasty with Dr. Wang on 04/09. Per review of operative note, EBL was listed as 5 cc, general regional anesthesia was used, and there were no reported intraoperative complications. At time of consult, he does endorse pain behind his right knee, that ranges from 0-7 out of 10. Not worse with movements. No radiation. No numbness or tingling going down the leg. Patient has not been up and out of bed yet. He has been drinking water since the surgery, and has been feeling hungry. Patient does have a history of DVT/PE after having COVID-19 several years ago; he reports he is currently on aspirin, but no other blood thinners. Patient is a former tobacco cigarette smoker, but quit in 1990. He denies supplemental oxygen at home, or CPAP at night. Patient reports that he took his metoprolol and lansoprazole this morning as instructed, but no other medications. No recent change in medications. Patient's vitals are stable at time of consult. ROS: Patient endorses dry cough, nausea, and pain behind left knee. Patient denies fever, chills, dizziness/lightheadedness, headache, chest pain, SOB, pleuritic CP, abdominal pain, vomiting, diarrhea, burning with urination, blood in urine or stool, or numbness or tingling in the left leg/knee Allergies Allergy/AdvReac Type Severity Reaction Status Date / Time No Known Allergies Allergy Verified 04/09/24 08:38 Home Medications Medication Instructions Recorded Confirmed Type atorvastatin 40 mg tablet 40 mg PO PM 03/20/23 04/09/24 History buspirone 5 mg tablet 5 mg PO BID 03/20/23 04/09/24 History cetirizine 10 mg tablet (Zyrtec) 10 mg PO QPM 03/20/23 04/09/24 History cholecalciferol (vitamin D3) 125 125 mcg PO QAM 03/20/23 04/09/24 History mcg (5,000 unit) tablet (Vitamin D3) cyanocobalamin (vitamin B-12) 1 tab PO QAM 03/20/23 04/09/24 History gabapentin 100 mg capsule 200 mg PO TID 03/20/23 04/09/24 History guaifenesin 1,200 mg tablet, 1,200 mg PO BID 03/20/23 04/09/24 History extended release 12 hr (Mucinex) losartan 25 mg tablet 25 mg PO BID 03/20/23 04/09/24 History metoprolol succinate 25 mg 25 mg PO QAM 03/20/23 04/09/24 History tablet,extended release 24 hr azithromycin 250 mg tablet 250 mg PO 3XWK 04/18/23 04/09/24 History triamcinolone acetonide 0.1 % 1 applic topical BID PRN Skin 04/24/23 04/09/24 History topical cream Irritation Collagen Powder 1 dose PO QAM 03/04/24 04/09/24 History aspirin 81 mg tablet,delayed 81 mg PO HS 03/04/24 04/09/24 History release coQ10 (ubiquinol) 100 mg capsule 100 mg PO HS 03/04/24 04/09/24 History lansoprazole 30 mg capsule,delayed 30 mg PO QAM 03/04/24 04/09/24 History release (Prevacid) famotidine 20 mg tablet (Pepcid) 20 mg PO HS 03/28/24 04/09/24 History meloxicam 15 mg tablet 15 mg PO DAILY 03/28/24 04/09/24 History Patient History Medical History Aortic aneurysm Mild dilation of the distal aorta per 06/2022 aorta ultrasound [facility] Aortic stenosis Echo 08/2023: Mild aortic stenosis (PORFIRIO 1.4cm2, MG 13.7mmhg) Barretts esophagus CAD (coronary artery disease) Stent x1 (2017) Follows with Dr. Nina Chronic anemia Chronic lung disease "Chronic lung disease with bronchiectasis" per pulmonary Chronic abx (takes 3 days a week for the last 3 years) Follows with [facility]/Dr. Allison COVID-19 tested positive 03/26/24, asymptomatic GERD (gastroesophageal reflux disease) History of COVID-19 2020: hospitalized in [facility] PE History of DVT (deep vein thrombosis) 4 total blood clots (2020), in setting of Covid infection History of pulmonary embolism BL PE (2020) in setting of Covid infection, was on blood thinner for 6 months after event History of recent pneumonia 01/2024, [facility] urgent care Hyperlipidemia Hypertension Osteoarthritis Osteoporosis Sleep apnea No device Spinal stenosis Surgical History History of cardiac catheterization 2018 > 1 stent History of cataract surgery R/L History of cholecystectomy History of colonoscopy History of esophagogastroduodenoscopy (EGD) History of lumbar surgery L3-5 + hardware (2004) History of repair of rotator cuff Right History of tooth extraction History of ventral hernia repair Status post total right knee replacement (04/18/23) LMA#5 + regional at [facility] (SAB unsuccessful r/t scar tissue from previous spine surgery) Family History Other No family history of adverse response to anesthesia Social History Smoking Status: Former smoker Second Hand Exposure: Yes (on occasion); Do You Dip or Chew Tobacco: No; Tobacco Cessation Education Requested by Patient: No Hx Alcohol Use: Yes Hx Substance Use: No Preferred Language: Citizen Of [place] Communication Ability: Effective Mobile Application Developer Required: No Beliefs That Will Affect Care: None Current Living Situation: Spouse Other Information That Helps Us Care for You: No Feels Safe at Home: Yes Safety Concerns: Feels Safe At This Time Assistive Devices: Denture - Upper and Denture - Lower Review of Systems Review of Systems: See HPI above Physical Exam Physical Exam: General: no acute distress; pleasant affect; non-toxic appearing; well- nourished; cooperative; SpO2 96% on 1L NC HEENT: normocephalic, atraumatic; no scleral icterus; PERRLA; moist mucus membrane; vision and hearing grossly intact Neck: supple; trachea midline Skin: warm, dry without signs of tenting; no cyanosis; no rashes, bruising, lesions, or erythema noted CV: chest wall NTP; RRR; S1/S2 normal; no murmurs/rubs/gallops; pulses intact and symmetric at radial, DP, and PT Lungs: no acute respiratory distress; symmetrical chest wall expansion; clear breath sounds across all lung pendleton w/o adventitious sounds; no wheezing ABD: Soft, NTP; BS present; no rebound/guarding; no distention MSK: no tics or fasciculations; no edema noted in the LEs b/l, nonerythematous (SCDs/teds in place); patient demonstrates the ability to wiggle toes bilaterally; feet are NV intact Neuro: A&Ox3; normal mood and affect; fluent speech; no focal deficits; patient endorses diminished sensation in his left foot when compared to his right foot (assessed via light touch at the toes) Results & Data Results & Data Vital Signs (Past 12 Hours) Vital Signs Temp Pulse Resp BP Pulse Ox O2 Del Method O2 Flow Rate 04/09/24 13:59 36.9 C 82 18 130/79 95 Nasal Cannula 1 04/09/24 13:45 37.1 C 86 18 137/70 96 Nasal Cannula 2 04/09/24 13:35 37.1 C 87 24 142/76 H 97 Nasal Cannula 2 04/09/24 13:25 37.1 C 85 19 151/70 H 94 Nasal Cannula 2 04/09/24 13:15 37.1 C 92 H 21 150/79 H 95 Nasal Cannula 2 04/09/24 13:05 90 17 137/82 96 Nasal Cannula 3 04/09/24 12:55 93 H 17 133/75 96 Nasal Cannula 3 04/09/24 12:45 93 H 18 141/80 H 96 Nasal Cannula 4 04/09/24 12:35 97 H 18 141/78 H 96 Nasal Cannula 4 04/09/24 12:25 36.5 C 98 H 16 130/70 97 Nasal Cannula 4 04/09/24 08:57 Room Air 04/09/24 08:57 36.8 C 72 18 118/72 96 Room Air Diagnostic Findings Knee X-Ray 04/09/24 12:25 XR knee LT 1 or 2V routine HISTORY: 78 years-old Male Surgical Post Op left knee arthroplasty COMPARISON: None TECHNIQUE: 2 views of the left knee FINDINGS: Total arthroplasty with patellar resurfacing. Anterior midline skin andie with expected postoperative soft tissue swelling and deep tissue air. Arterial calcifications. No acute fracture or dislocation. IMPRESSION: Total joint arthroplasty with expected postoperative changes. ACT 112: Negative or not required by law. The above report was generated using voice recognition software. It may contain grammatical, syntax or spelling errors. Electronically signed by: Jacoby Macias M.D. 04/09/2024 1:37 PM PG Care Time/CCT Total # of Minutes Spent Total Time Spent with Patient: Total time spent is greater than 50% in coordination of care (as documented) at patient's floor/unit and/or counseling patient: Coding [place] [address] IN/OBS CONSULT LVL 3,45M Patient Type Established History Comprehensive Exam Comprehensive Medical Decision Making Moderate Complexity Diagnoses Status post total left knee replacement Z96.652 CAD (coronary artery disease) I25.10 History of pulmonary embolism Z86.711 Hypertension I10
[2024-04-09] MEDS: GABAPENTIN 100 MG CAP PO SCH (15:47)
[2024-04-09] MEDS: HYDROmorphone INJ 0.5 MG/0.5 ML SYR IV PRN (16:52)
[2024-04-09] MEDS ORDERED: ASPIRIN 81 MG ECTAB PO SCH (21:00)
[2024-04-09] MEDS ORDERED: NON-FORMULARY MEDICATION (Coq10 (Ubiquinol) 100 mg Capsule) PO SCH (21:00)
[2024-04-09] MEDS: SENNA 8.6 MG TAB PO SCH (21:52)
[2024-04-09] MEDS: LOSARTAN POTASSIUM 25 MG TAB PO SCH (21:53)
[2024-04-09] MEDS: guaiFENesin 600 MG TABCR PO SCH (21:54)
[2024-04-09] MEDS: DOCUSATE SODIUM 100 MG CAP PO SCH (21:55)
[2024-04-09] MEDS: busPIRone 5 MG TAB PO SCH (21:56)
[2024-04-09] MEDS: oxyCODONE HCL IR 5 MG TAB (IMMEDIATE RELEASE) PO PRN (21:56)
[2024-04-09] MEDS: CETIRIZINE HCL 10 MG TABLET PO SCH (21:56)
[2024-04-09] MEDS: ATORVASTATIN 40 MG TAB PO SCH (21:58)
[2024-04-09] MEDS: ASPIRIN 81 MG ECTAB PO ONE (21:58)
[2024-04-09] MEDS: ALUMINUM/MAGNESIUM SUSP 30 ML UDC PO STA (22:33)
[2024-04-10] MEDS: FAMOTIDINE 20 MG TAB PO ONE (00:03)
[2024-04-10] MEDS: ONDANSETRON INJ 2 MG/ML 2 ML VIAL IV PRN (00:05)
--- NOTE | 2024-04-10 06:53 | Orthopedic Progress Note ---
Date of Service April 10, 2024 Assessment & Plan (1) Status post total left knee replacement: Plan: Postop day 1 status post left total knee arthroplasty. PT OT protocols. Weightbearing as tolerated. DVT prophylaxis-aspirin p.o. twice daily, MARIFER Strickland; apixaban 2.5 mg p.o. twice daily to start this evening as per medicine service. Will discuss. pain management as written. Labs pending DC planning-patient is planning for outpatient PT upon discharge. We will see how he is progressing with his physical therapy and continue to follow his Hemovac drainage. Possible discharge to home today. Also waiting on current lab values. Admission and Anticipated Discharge Date Admission Date: April 09, 2024 Subjective Postop day 1 patient sitting in his chair next to the bedside. Patient feels well this morning. No complaints. Pain is controlled. He is hoping to go home today. Physical Exam Physical Exam: Dressings are clean, dry, and intact. Calves are soft nontender. Neurovascular is intact. Toes are mobile. Patient has good dorsiflexion and plantarflexion of the left foot. Hemovac drainage was 175 cc from the previous shift. Results & Data Vital Signs (Past 12 Hours) Vital Signs Temp Pulse Resp BP Pulse Ox O2 Del Method 04/10/24 04:34 36.7 C 73 18 103/61 96 Room Air 04/09/24 23:23 36.7 C 63 18 119/63 96 Room Air 04/09/24 20:00 Room Air 04/09/24 19:31 36.6 C 78 18 134/72 96 Room Air
[2024-04-10] MEDS: ASPIRIN 81 MG ECTAB PO SCH (07:50)
[2024-04-10] MEDS: MULTIVITAMIN TAB PO SCH (07:51)
[2024-04-10] MEDS: METOPROLOL SUCC 25MG EXT REL TAB PO SCH (07:52)
[2024-04-10] MEDS: PANTOprazole 40 MG TAB PO SCH (07:52)
[2024-04-10] MEDS: CHOLECALCIFEROL 125 MCG (5,000 UNITS) TAB PO SCH (07:52)
[2024-04-10 07:53] LABS: Hematocrit (blood only) 34.9 % (42.0-52.0); Hemoglobin 11.4 g/dl (14.0-18.0); Mean Corpuscular Hemoglobin 29.4 pg (25.0-34.0); Mean Corpuscular Hgb Conc 32.7 g/dL (32.0-36.0); Mean Corpuscular Volume 89.9 fL (80.0-100.0); Mean Platelet Volume 10.8 fL (9.4-12.4); Platelet Count 287 K/uL (130-400); RDW Coefficient of Variation 13.7 % (11.5-14.5); RDW Standard Deviation 44.7 fL (36.4-46.3); Red Blood Count 3.88 M/uL (4.70-6.10); White Blood Count 18.96 K/ul (4.8-10.8)
[2024-04-10 08:10] LABS: Anion Gap 7 (3-11); BUN Creatinine Ratio 19.3 (10-20); Blood Urea Nitrogen 21 mg/dl (6-23); Calcium 8.9 mg/dl (8.6-10.3); Carbon Dioxide 25 mmol/L (21-32); Chloride 105 mmol/L (98-107); Creatinine Clr Calc Pharmacy 64.4 ml/min; Est GFR (Non-African American) 64.7 ml/min; Glucose 147 mg/dl (70-99(Fasting)); Sodium 137 mmol/L (136-145)
--- NOTE | 2024-04-10 11:06 | Hospitalist Progress Note ---
Date of Service April 10, 2024 Assessment & Plan (1) Status post total left knee replacement: Plan: Left total knee replacement with Dr. Wang on 04/09 Postop left knee x-ray shows expected postoperative soft tissue swelling Perioperative antibiotics, pain control, and fluid management per the primary team Recent covid infection and hx of covid-associated b/l PEs; Recommend Eliquis 2.5mg BID - Ortho Aware - Patient tells me they are providing samples for him (2) CAD (coronary artery disease): Plan: S/p stent placement in 2017 Continue aspirin once a day, increasing to BID after completion of Eliquis per Ortho (3) History of pulmonary embolism: Plan: Bilateral pulmonary emboli in 2020 with associated COVID infection Patient was previously on a blood thinner x 6 months (4) Hypertension: Plan: BP well controlled Plan Dispo: agree with discharge home today ensuring that patient is able to obtain Eliquis Thank you for allowing us to precipitate in the care of this patient, please reach out with any questions or concerns; we will continue to follow. Admission and Anticipated Discharge Date Admission Date: April 09, 2024 Supervising Physician Co-Signing Physician Notes Attending Attestation - Chart reviewed, care plan d/w RUBA Araiza. I agree w/ the russell components of her documentation. Agree with Eliquis for DVT prophylaxis rather than aspirin in light of prior VTE event. Volodymyr Palmer MD Subjective patient sitting up in the chair. Dressed in street clothes, ready to go home States that Ortho has said they were going to provide samples for the Eliquis as his is on this and he knows that he cannot afford it. Good appetite. Pain is controlled, positive bowel movement Review of Systems Review of Systems: All systems reviewed & are unremarkable except as noted in Subjective Physical Exam Physical Exam: General: NAD, VS as above, sitting up in the chair, dressed in street clothes Resp: normal respiratory effort, crackles in the bases CV: RRR, no murmur, Extremities: Moves all extremities, shamir wrap present on left leg, ezequiel hose on right leg Neuro: A&O x3, Skin: intact, no lesions noted Results & Data Results & Data Vital Signs (Past 12 Hours) Vital Signs Temp Pulse Resp BP Pulse Ox O2 Del Method 04/10/24 08:54 Room Air 04/10/24 07:53 114/66 04/10/24 07:38 36.7 C 70 18 108/47 L 98 Room Air 04/10/24 04:34 36.7 C 73 18 103/61 96 Room Air 04/09/24 23:23 36.7 C 63 18 119/63 96 Room Air Laboratory Results CBC and chemistry reviewed PG Care Time/CCT Total # of Minutes Spent Total Time Spent with Patient: Total time spent is greater than 50% in coordination of care (as documented) at patient's floor/unit and/or counseling patient: Coding Level of Care Code 03625 SUB INP/OBS CARE 350MIN Diagnoses Status post total left knee replacement Z96.652 CAD (coronary artery disease) I25.10 History of pulmonary embolism Z86.711 Hypertension I10
[2024-04-10] MEDS ORDERED: APIXABAN 2.5 MG TAB PO SCH (21:00)
--- NOTE | 2024-04-14 17:49 | Discharge Summary ---
Date of Service April 14, 2024 Admission HPI Per Admitting Provider 78-year-old male with chronic left knee pain. Successful right knee replacement. Patient wishes to proceed with left knee replacement Patient denies headaches, sweats, fevers, chills, double vision, blurred vision, cough, sore throat, dysphagia, chest pain, wheezing, n/v/d/c, numbness, tingling, fatigue, urinary symptoms, mood disorders. ROS positive for history of hypertension high cholesterol 1 blood clots chronic cough felt to be recent pneumonia shortness of breath climbing stairs or walking up a hill low back pain acid reflux denture Admission Exam Per Admitting Provider Physical Exam Constitutional: WD/WN, vitals as above Respiratory: normal respiratory effort; no respiratory distress Cardiovascular: Rate/Rhythm: regular rate and regular rhythm Musculoskeletal: 10 through 125 degrees range of motion w ith a varus knee and mild effusion and some crepitation with range of motion. No gross instability. Right knee 5-120 degrees pain-free benign incision no swelling. Lower extremity neurovascular exam intact Skin: no rashes, warm and dry Neurologic: normal touch/pain/proprioception Psychiatric: A+Ox3, euthymic affect Principal Diagnosis Left Knee Osteoarthritis Discharge Data Allergies Allergy/AdvReac Type Severity Reaction Status Date / Time No Known Allergies Allergy Verified 04/09/24 08:38 Consultations 04/04/24 15:23 Consult Hospitalist Routine Procedures Performed Operation Date: 04/09/24 09:55 Actual Procedures p Left Knee Total Arthroplasty(Left) - Binu Wang MD Ordered Studies 04/09/24 05:00 US - OR guided needle placemen Routine Hospital Course (1) Status post total left knee replacement: Patient: JACQUIE FERNANDEZ Admit Date: 04/09/24 MR#: [id number] Att Phy: Binu Wang M.D. Acct ID: [id number] Muna Phy: Nelson Flores DO Date: 1945 Fam Phy: Age: 78 Location: 3E Sex: M Room/Bed: E319-1 cc: ~ *NOTICE TO RECEIVING [employer]Y/AGENCY This information is strictly Confidential and protected under [place] law. [place] law prohibits you from making any further disclosure of this information unless further disclosure is expressly permitted by the written consent of the person to whom it pertains or is authorized by law. A general authorization for the release of medical or other information is not sufficient for this purpose. Hospital accepts no responsibility if the information is made available to any other person, INCLUDING THE PATIENT. Date of Service April 10, 2024 Assessment & Plan (1) Status post total left knee replacement: Plan: Postop day 1 status post left total knee arthroplasty. PT OT protocols. Weightbearing as tolerated. DVT prophylaxis-aspirin p.o. twice daily, SCDs, MARIFER hargrove; apixaban 2.5 mg p.o. twice daily to start this evening as per medicine service. Will discuss. pain management as written. Labs pending DC planning-patient is planning for outpatient PT upon discharge. We will see how he is progressing with his physical therapy and continue to follow his Hemovac drainage. Possible discharge to home today. Also waiting on current lab values. Admission and Anticipated Discharge Date Admission Date: April 09, 2024 Subjective Postop day 1 patient sitting in his chair next to the bedside. Patient feels well this morning. No complaints. Pain is controlled. He is hoping to go home today. Physical Exam Physical Exam: Dressings are clean, dry, and intact. Calves are soft nontender. Neurovascular is intact. Toes are mobile. Patient has good dorsiflexion and plantarflexion of the left foot. Hemovac drainage was 175 cc from the previous shift. Results & Data Vital Signs (Past 12 Hours) Vital Signs Temp Pulse Resp BP Pulse Ox O2 Del Method 04/10/24 04:34 36.7 C 73 18 103/61 96 Room Air 04/09/24 23:23 36.7 C 63 18 119/63 96 Room Air 04/09/24 20:00 Room Air 04/09/24 19:31 36.6 C 78 18 134/72 96 Room Air Signed By: <Electronically signed by Pedrito Bailey MD> 04/10/24 0807 <Electronically signed by Jaziel Grimm PA-C> 04/10/24 0656 Created: 04/10/24 0651 Laboratory results reviewed prior to discharge. Leukocytosis likely secondary to surgical stress/preop steroids. Pt without sx's. Glucose 147. Other values essentally normal. Pt ok'd for dc to home. Total Time Total Time Spent Total Time Spent (In Minutes): 10 Discharge Plan Discharge Items Patient Disposition: Home - Self-Care Reason For Visit: Left Knee Osteoarthritis Discharge Diagnosis: Left Knee Osteoarthritis Activity: Per Instructions section Non-emergency contact: Surgeon Call non-emergency contact if: you have any medication questions, your pain is not controlled, your temperature is above 101.5, your wound has increased redness and your wound has increased drainage Follow-up/Referrals: Binu Wang MD [Surgeon] - (Follow up tomorrow in office to have Hemovac removed and dressing changed then ( they will call you with a time for tomorrow), Follow up with Dr. Wang in 2 weeks from the day of surgery for your first post operative visit) Nelson Flores DO [Primary Care Provider] - Diet: Regular Addtl Attending Provider Instructions: ACTIVITY RECOMMENDATIONS: SELF CARE INSTRUCTIONS AFTER TOTAL KNEE REPLACEMENT A. You may need to continue a physical therapy program after discharge from the hospital. There are several options available to you. Your doctor will assist you in selecting the best one for you. 1. An out-patient facility 2 to 3 times a week for therapy or home therapy. 2. Continue working on all exercises taught to you in the hospital. Your goals should be to increase bending of your knee to 90 degrees and beyond and to fully straighten your knee. B. You may progress at your own pace from walking with a walker or crutches to a cane; then to no assistive devices. C. Make walking a part of your daily routine. Be up as much as comfortable with rest periods throughout the day. Rest with leg elevation is very important. Use the ice wrap frequently for the first 3-4 weeks. D. There are no restrictions on activities. You may ride in a car, shop, participate in safe deposit attendant and all social activities. E. Wear the long elastic stockings (MARIFER hose) 20 hours a day for 2 weeks after surgery. They can be removed several times a day for laundering and for a bath. F. You may shower, no tub baths until cleared by your doctor. SPECIAL CARE INSTRUCTIONS: VERY IMPORTANT TO READ AND REVIEW A. There are a few signs you need to watch for after you are home. Call [facility] if you notice any of the followin. Increased severe knee pain. Some pain is expected especially when you exercise. 2. Increased swelling in your leg or knee; pain or swelling of the calf muscle in either lower leg. 3. Any fluid drainage from the incision. 4. Shortness of breath or chest pain. B. Please call [facility] at if you have any concerns or questions about your operation or recovery. The doctor or his nurse will return your call promptly. C. You must take antibiotics before dental work, bladder, bowel or other surgery. Your doctor will provide you with a permanent care to carry describing this precaution. IMPORTANT: * REMEMBER TO TAKE ASPIRIN, 81 MG, TWICE DAILY FOR 4 WEEKS UNLESS OTHERWISE DIRECTED. THIS IS YOUR BLOOD THINNER. * CALL IF INCREASED PAIN, REDNESS, DRAINAGE OR FEVER GREATER THAT 101. * WEAR MARIFER HOSE 20 HOURS PER DAY FOR 2 WEEKS. * Almita Dressing - This is a large suction dressing covering your incision. This will help pull any excess drainage from the wound and allow your incision to heal properly. You may shower with this if you can keep the unit outside of the shower. If any bleeding or leakage is noted please call your doctor's office. This will remain on your incision for 7 days and then should be removed. This can be done yourself or by the home nursing staff if applicable. The entire unit is disposable once removed. Once removed, keep incision clean and dry. If redness or drainage is noted, please call your surgeon. . FOLLOW UP VISIT: If appointment is not already scheduled: Please call [facility] to make a follow-up appointment for 2 weeks after your surgery at . Stand-Alone Forms: My [facility], Pain - Opioid Pain Management, Smoking Cessation Medications and DC Order Prescriptions: New acetaminophen [Tylenol Extra Strength] 500 mg Tablet 1,000 mg PO Q8 14 Days Qty: 84 0RF oxycodone 5 mg tablet 5 mg PO Q4H MDD 6 PRN (Reason: pain) Qty: 30 0RF Eliquis 2.5 mg Tablet 2.5 mg PO BID 30 Days Qty: 60 0RF cefadroxil 500 mg capsule 500 mg PO BID Qty: 28 1RF Continued triamcinolone acetonide 0.1 % cream 1 applic TOPICAL BID PRN (Reason: Skin Irritation) atorvastatin 40 mg Tablet 40 mg PO PM buspirone 5 mg Tablet 5 mg PO BID cetirizine [Zyrtec] 10 mg Tablet 10 mg PO QPM losartan 25 mg Tablet 25 mg PO BID gabapentin 100 mg Capsule 200 mg PO TID metoprolol succinate 25 mg Tablet Extended Release 24 Hr 25 mg PO QAM cyanocobalamin (vitamin B-12) Tablet,Chewable 1 tab PO QAM cholecalciferol (vitamin D3) [Vitamin D3] 125 mcg (5,000 unit) Tablet 125 mcg PO QAM guaifenesin [Mucinex] 1,200 mg Tablet Extended Release 12hr 1,200 mg PO BID azithromycin 250 mg tablet 250 mg PO [id number] Rx Instructions: Patient takes medications on Mon/Wed/Fri meloxicam 15 mg tablet 15 mg PO DAILY lansoprazole [Prevacid] 30 mg Capsule,Delayed Release(Dr/Ec) 30 mg PO QAM coQ10 (ubiquinol) 100 mg Capsule 100 mg PO HS Collagen Powder 1 dose PO QAM Patient Comments: 1 scoop every am famotidine [Pepcid] 20 mg Tablet 20 mg PO HS Held aspirin 81 mg Tablet,Delayed Release (Dr/Ec) 81 mg PO HS Hold Instructions: Resume when you have finished taking your Eliquis Discharge Orders: Discharge Order (Routine); Ordered 04/10/24 Ordered By: Jaziel Grimm Admission Data Admit Date/Time: 04/09/24 12:25 Attending Provider: Binu Wang Admit Provider: Binu Wang Primary Care Provider: Nelson Flores Other Interventions: Discharge Summary Assessment (RN) Last Done: 04/10/24 10:04
== END 2024-04-10 11:58 | disposition home or self-care (01) ==
LOC: ASU 08:25 → 3E 08:25